=== PATIENT | female | born 1965 | race Two or more races ===

== ENCOUNTER 2017-06-16 14:28 | Emergency (ER) | payer OTHER ==
[~2017-06-16] VITALS: Ht 154.9 cm; Wt 93.4 kg
[2017-06-16 14:34] VITALS: BP 159/51
[2017-06-16] MEDS ORDERED: KETOROLAC TROMETH 60MG/2ML VIAL IM ONE (15:15)
== END 2017-06-16 16:04 | disposition left against medical advice (07) ==
LOC: ER 14:28
DX: S01.531A Puncture wound without foreign body of lip, initial encounter (principal); S80.01XA Contusion of right knee, initial encounter; M17.11 Unilateral primary osteoarthritis, right knee; M19.90 Unspecified osteoarthritis, unspecified site; E11.9 Type 2 diabetes mellitus without complications; I10 Essential (primary) hypertension; G89.4 Chronic pain syndrome; E66.9 Obesity, unspecified; Z68.38 Body mass index [BMI] 38.0-38.9, adult; W18.39XA Other fall on same level, initial encounter; Y93.89 Activity, other specified; Y92.89 Other specified places as the place of occurrence of the external cause; Y99.8 Other external cause status
CPT/HCPCS: 73562; 73700; 96372; 99284; J1885

== ENCOUNTER 2017-06-17 12:17 | Emergency (ER) | payer OTHER ==
[~2017-06-17] VITALS: Ht 154.9 cm; Wt 91.6 kg
[2017-06-17 12:40] VITALS: BP 144/68
== END 2017-06-17 13:31 | disposition home or self-care (01) ==
LOC: ER 12:17
DX: M17.11 Unilateral primary osteoarthritis, right knee (principal); E11.9 Type 2 diabetes mellitus without complications; I10 Essential (primary) hypertension; Z76.0 Encounter for issue of repeat prescription; Z88.6 Allergy status to analgesic agent

== ENCOUNTER 2023-09-08 10:55 | Inpatient (IN) | payer OTHER ==
[~2023-09-08] VITALS: Ht 175.3 cm; Wt 207.0 kg
[2023-09-08] MEDS: ACETAMINOPHEN 325 MG TAB PO ONE (11:11)
[2023-09-08 12:13] LABS: Basophils # (auto) 0 10 ^3/uL (0-0.2); Basophils % (auto) 0.5 % (0.0-2.0); Eosinophils # (auto) 0 10 ^3/uL (0-0.8); Eosinophils % (auto) 0.2 % (0.0-7.0); Hematocrit 32.2 % (36.0-46.0); Hemoglobin 10.6 g/dL (12.2-16.2); Lymphocytes # (auto) 0.5 10 ^3/uL (0.4-5.4); Mean Corpuscular Volume 81.9 fL (80.0-100.0); Monocytes # (auto) 0.6 10 ^3/uL (0-1.3); Monocytes % (auto) 6.4 % (0.0-12.0); Neutrophils # (auto) 8.8 10 ^3/uL (1.6-8.6); Neutrophils % (auto) 87.9 % (37.0-80.0); Red Blood Cells 3.93 10^6/uL (4.0-5.20); White Blood Cell 10.1 10^3/uL (4.4-10.8)
[2023-09-08 12:14] LABS: Alanine Aminotransferase 26 U/L (7-40); Albumin 3.2 g/dL (3.2-4.8); Alkaline Phosphatase 163 U/L (46-116); Anion Gap 8 (5-15); Aspartate Aminotransferase 51 U/L (13-40); BUN/Creatinine Ratio 10.8 (10.0-20.0); Blood Urea Nitrogen 10 mg/dL (9-23); Calcium 8.6 mg/dL (8.7-10.4); Carbon Dioxide 19 mmol/L (20-30); Chloride 103 mmol/L (98-107); Glucose 191 mg/dL (74-106); Lipase 20 U/L (12-53); Magnesium 1.3 mg/dL (1.6-2.6); Potassium 3.8 mmol/L (3.5-5.1); Sodium 130 mmol/L (136-145)
[2023-09-08 12:15] LABS: Bilirubin, Total 2.1 mg/dL (0.2-1.0); Total Protein 7.3 g/dL (5.7-8.2)
[2023-09-08 12:29] LABS: Lactic Acid w/Reflex 4.8 mmol/L (0.4-2.0)
[2023-09-08 12:32] LABS: Blood Alcohol < 3.0 mg/dL (<10)
[2023-09-08 15:00] VITALS: PULSE 102; RESP 18; O2SAT 97
[2023-09-08] MEDS ORDERED: NITROGLYCERIN 0.4 MG SL TAB SL PRN (15:15)
[2023-09-08] MEDS ORDERED: ACETAMINOPHEN 325 MG TAB PO PRN (15:15)
[2023-09-08] MEDS ORDERED: ONDANSETRON HCL 4 MG/2 ML VIAL IV PRN (15:15)
[2023-09-08] MEDS ORDERED: DEXTROSE (50%) 50ML SYRG IV PRN (15:15)
[2023-09-08] MEDS ORDERED: MORPHINE SULFATE INJ 2 MG/ml SYRG IV PRN (15:15)
[2023-09-08] MEDS: cefTRIAXone 2GM/50ML D5W 50 ML IV ONE (15:15)
[2023-09-08] MEDS: LACTULOSE 20Gm/30ML SOLN PO ONE (15:16)
[2023-09-08] MEDS: SODIUM CHLORIDE 0.9% 500 ML IV ONE ×3 (15:18)
[2023-09-08] MEDS: SODIUM CHLORIDE 0.9% 1,000 ML IV SCH (15:24)
[2023-09-08] MEDS: MAGNESIUM SULFATE 1GM/100ML 100 ML IV ONE (15:47)
[2023-09-08 17:27] LABS: Lactic Acid w/Reflex 2.4 mmol/L (0.4-2.0)
[2023-09-08] MEDS: ACCU-CHEK COMFORT CURVE STRIP VI SCH (17:37)
[2023-09-08] MEDS: InsuLIN REG 1unit/0.01ml Soln (100units/ml) SC SCH (17:37)
[2023-09-08] MEDS: LACTULOSE 20Gm/30ML SOLN PO SCH (17:51)
[2023-09-08 19:30] VITALS: PULSE 98; RESP 16; O2SAT 98
[2023-09-08 20:21] LABS: COVID19 ANTIGEN SOFIA FIA NEGATIVE (NEGATIVE)
[2023-09-08 20:22] LABS: Rapid Influenza A Negative (Negative); Rapid Influenza B Negative (Negative)
[2023-09-08] MEDS ORDERED: diphenhdrAMINE HCL 50 MG/1 ML VL IV PRN (21:00)
[2023-09-08] MEDS ORDERED: PIPERACILLIN-TAZOB 3.375GM 100 ML IV SCH (21:00)
[2023-09-08] MEDS: CEFEPIME 1GM/ 50ML 50 ML IV SCH (22:45)
[2023-09-08 23:57] VITALS: BP 117/52; PULSE 99; RESP 18; TEMP 99.1; O2SAT 96
[2023-09-09] VITALS (9 sets, daily range): BP systolic 117–166; BP diastolic 51–80; PULSE 18–107; RESP 18–100; TEMP 97.6–99.1; O2SAT 92–100
[2023-09-09] MEDS: ACETAMINOPHEN 325 MG TAB PO PRN (00:23)
[2023-09-09 00:59] LABS: Lactic Acid w/Reflex 2.6 mmol/L (0.4-2.0)
[2023-09-09] MEDS ORDERED: SEMA4INJ SC (02:17)
[2023-09-09] MEDS ORDERED: ATEN100T PO (02:17)
[2023-09-09] MEDS ORDERED: RIFA550T PO (02:17)
[2023-09-09] MEDS ORDERED: FLUO40CA PO (02:17)
[2023-09-09] MEDS ORDERED: OXY5T PO (02:17)
[2023-09-09] MEDS ORDERED: FAMO-12 PO (02:17)
[2023-09-09 06:02] LABS: Basophils # (auto) 0 10 ^3/uL (0-0.2); Eosinophils # (auto) 0 10 ^3/uL (0-0.8); Hemoglobin 9.5 g/dL (12.2-16.2); Lymphocytes # (auto) 0.3 10 ^3/uL (0.4-5.4); Monocytes # (auto) 0.4 10 ^3/uL (0-1.3); Neutrophils # (auto) 2.3 10 ^3/uL (1.6-8.6); White Blood Cell 3.1 10^3/uL (4.4-10.8)
[2023-09-09 06:06] LABS: Basophils % (auto) 0.9 % (0.0-2.0); Eosinophils % (auto) 1.6 % (0.0-7.0); Hematocrit 29.2 % (36.0-46.0); Lymphocytes % (auto) 9.9 % (10.0-50.0); Mean Corpuscular Hemoglobin 26.6 pg (28.0-32.0); Mean Corpuscular Hgb Conc. 32.6 g/dL (32.0-36.0); Mean Corpuscular Volume 81.4 fL (80.0-100.0); Neutrophils % (auto) 75.6 % (37.0-80.0); Red Blood Cells 3.58 10^6/uL (4.0-5.20)
[2023-09-09 06:24] LABS: Alanine Aminotransferase 29 U/L (7-40); Albumin 2.9 g/dL (3.2-4.8); Alkaline Phosphatase 116 U/L (46-116); Anion Gap 7 (5-15); Aspartate Aminotransferase 78 U/L (13-40); Bilirubin, Total 2.1 mg/dL (0.2-1.0); Blood Urea Nitrogen 9 mg/dL (9-23); Calcium 8.6 mg/dL (8.7-10.4); Carbon Dioxide 22 mmol/L (20-30); Chloride 107 mmol/L (98-107); Glucose 177 mg/dL (74-106); Magnesium 1.7 mg/dL (1.6-2.6); Potassium 3.5 mmol/L (3.5-5.1); Total Protein 6.7 g/dL (5.7-8.2)
[2023-09-09 06:26] LABS: Sodium 136 mmol/L (136-145)
[2023-09-09] MEDS ORDERED: OMEP1CAP70 PO (14:00)
[2023-09-09] MEDS ORDERED: METF-372 PO (14:00)
[2023-09-09] MEDS ORDERED: CYCL-839 PO (14:00)
[2023-09-09] MEDS ORDERED: SIMV10TA20 PO (14:00)
[2023-09-10 01:00] VITALS: BP 140/76; PULSE 79; RESP 18; TEMP 98.1; O2SAT 94
[2023-09-10 05:00] VITALS: BP 142/74; PULSE 85; RESP 18; TEMP 98.4; O2SAT 95
[2023-09-10] MEDS: MORPHINE SULFATE INJ 2 MG/ml SYRG IV PRN (05:43)
[2023-09-10 07:03] LABS: Basophils # (auto) 0 10 ^3/uL (0-0.2); Eosinophils # (auto) 0.2 10 ^3/uL (0-0.8); Hemoglobin 10.6 g/dL (12.2-16.2); Monocytes # (auto) 0.4 10 ^3/uL (0-1.3); Neutrophils # (auto) 2.4 10 ^3/uL (1.6-8.6); Nucleated Red Blood Cells % 0.1 %; White Blood Cell 3.7 10^3/uL (4.4-10.8)
[2023-09-10 07:07] LABS: Eosinophils % (auto) 6.4 % (0.0-7.0); Hematocrit 32.6 % (36.0-46.0); Lymphocytes # (auto) 0.6 10 ^3/uL (0.4-5.4); Lymphocytes % (auto) 17.2 % (10.0-50.0); Mean Corpuscular Hemoglobin 26.9 pg (28.0-32.0); Mean Corpuscular Hgb Conc. 32.7 g/dL (32.0-36.0); Mean Corpuscular Volume 82.3 fL (80.0-100.0); Monocytes % (auto) 10.1 % (0.0-12.0); Neutrophils % (auto) 65.3 % (37.0-80.0); Red Blood Cells 3.96 10^6/uL (4.0-5.20)
[2023-09-10 07:18] LABS: Red Cell Distribution Width 20.1 % (11.8-14.3)
[2023-09-10 07:33] LABS: Alanine Aminotransferase 32 U/L (7-40); Alkaline Phosphatase 121 U/L (46-116); Anion Gap 11 (5-15); BUN/Creatinine Ratio 12.2 (10.0-20.0); Blood Urea Nitrogen 9 mg/dL (9-23); Calcium 8.6 mg/dL (8.5-10.1); Carbon Dioxide 21 mmol/L (20-30); Chloride 109 mmol/L (98-107); Glucose 151 mg/dL (74-106); Potassium 3.3 mmol/L (3.5-5.1); Sodium 141 mmol/L (136-145); Triglycerides 84 mg/dL (< 150)
[2023-09-10 07:34] LABS: Albumin 3.2 g/dL (3.2-4.8); Aspartate Aminotransferase 73 U/L (13-40); LDL Cholesterol 32 mg/dL (< 100)
[2023-09-10 07:35] LABS: Bilirubin, Total 1.7 mg/dL (0.2-1.0); Cholesterol 72 mg/dL (< 200); HDL Cholesterol 26 mg/dL (40-59); Total Protein 6.9 g/dL (5.7-8.2)
[2023-09-10 07:54] LABS: Lipase 19 U/L (12-53)
[2023-09-10 08:30] VITALS: BP 124/60; PULSE 93; RESP 19; TEMP 98.3
[2023-09-10] MEDS: POTASSIUM CHL 20MEQ/100ML 100 ML IV SCH (13:46)
[2023-09-10 15:02] VITALS: BP 129/62; PULSE 94; RESP 18; TEMP 98.4; O2SAT 97
[2023-09-10 20:00] VITALS: BP 132/72; PULSE 100; PULSE 87; RESP 16
[2023-09-10 21:00] VITALS: BP 132/72; PULSE 87; RESP 16; TEMP 98; O2SAT 97
[2023-09-11] VITALS (9 sets, daily range): BP systolic 114–167; BP diastolic 54–76; PULSE 70–97; RESP 17–20; TEMP 97.8–98.5; O2SAT 93–98
[2023-09-11] MEDS ORDERED: POTASSIUM CHL 20MEQ/100ML 100 ML IV SCH (03:30)
[2023-09-11] MEDS: POTASSIUM CHL 20MEQ/100ML 100 ML IV ONE (03:57)
[2023-09-11 07:46] LABS: Amylase 23 U/L (30-118)
[2023-09-11 07:47] LABS: Lipase 20 U/L (12-53)
[2023-09-12 01:00] VITALS: BP 121/57; PULSE 90; RESP 19; TEMP 97.9; O2SAT 94
[2023-09-12 05:00] VITALS: BP 137/56; PULSE 93; RESP 20; TEMP 97.6; O2SAT 97
[2023-09-12 07:27] LABS: Basophils # (auto) 0 10 ^3/uL (0-0.2); Eosinophils # (auto) 0.2 10 ^3/uL (0-0.8); Hematocrit 29.5 % (36.0-46.0); Monocytes # (auto) 0.2 10 ^3/uL (0-1.3); Red Blood Cells 3.63 10^6/uL (4.0-5.20)
[2023-09-12 07:34] LABS: Basophils % (auto) 0.8 % (0.0-2.0); Eosinophils % (auto) 6.4 % (0.0-7.0); Hemoglobin 9.8 g/dL (12.2-16.2); Lymphocytes # (auto) 0.6 10 ^3/uL (0.4-5.4); Lymphocytes % (auto) 18.4 % (10.0-50.0); Mean Corpuscular Hemoglobin 26.9 pg (28.0-32.0); Mean Corpuscular Hgb Conc. 33.1 g/dL (32.0-36.0); Mean Corpuscular Volume 81.4 fL (80.0-100.0); Monocytes % (auto) 7.8 % (0.0-12.0); Neutrophils % (auto) 66.6 % (37.0-80.0); Nucleated Red Blood Cells % 0.1 %; Red Cell Distribution Width 19.7 % (11.8-14.3)
[2023-09-12 07:45] LABS: Alanine Aminotransferase 32 U/L (7-40); Albumin 2.9 g/dL (3.2-4.8); Alkaline Phosphatase 122 U/L (46-116); Anion Gap 8 (5-15); Aspartate Aminotransferase 81 U/L (13-40); Calcium 8.2 mg/dL (8.5-10.1); Carbon Dioxide 22 mmol/L (20-30); Chloride 108 mmol/L (98-107); Glucose 129 mg/dL (74-106); Potassium 3.8 mmol/L (3.5-5.1); Sodium 138 mmol/L (136-145)
[2023-09-12 07:46] LABS: BUN/Creatinine Ratio 8.6 (10.0-20.0); Blood Urea Nitrogen < 5 mg/dL (9-23)
[2023-09-12 07:47] LABS: Bilirubin, Total 1.6 mg/dL (0.2-1.0); Total Protein 6.8 g/dL (5.7-8.2)
[2023-09-12 08:00] VITALS: PULSE 89
[2023-09-12 08:50] VITALS: BP 133/67; PULSE 86; RESP 17; TEMP 97.9; O2SAT 97
[2023-09-12] MEDS ORDERED: RIFA550T PO (12:39)
[2023-09-12] MEDS ORDERED: LACT10SO3 PO (12:39)
[2023-09-12 12:45] VITALS: BP 130/56; PULSE 91; RESP 17; TEMP 97.8; O2SAT 97
[2023-09-12 13:41] VITALS: BP 130/56; PULSE 91; RESP 17; TEMP 97.8; O2SAT 97
== END 2023-09-12 14:56 | disposition home or self-care (01) | DRG 441 ==
LOC: ER 10:55 → TELE 15:07 → TELE-WESTW 23:25
PROVIDERS: ADMIT Hospitalist; ATTEND Hospitalist
DX: K76.82 Hepatic encephalopathy (principal); G93.41 Metabolic encephalopathy; K81.0 Acute cholecystitis; E87.20 Acidosis, unspecified; E87.1 Hypo-osmolality and hyponatremia; Z20.822 Contact with and (suspected) exposure to COVID-19; K74.60 Unspecified cirrhosis of liver; I10 Essential (primary) hypertension; E11.65 Type 2 diabetes mellitus with hyperglycemia; E83.42 Hypomagnesemia; M06.9 Rheumatoid arthritis, unspecified; Z96.653 Presence of artificial knee joint, bilateral; Z96.643 Presence of artificial hip joint, bilateral; G89.29 Other chronic pain; E80.6 Other disorders of bilirubin metabolism; R79.89 Other specified abnormal findings of blood chemistry; Z88.1 Allergy status to other antibiotic agents
CPT/HCPCS: 36415; 71045; 74176; 74181; 76705; 80053; 80061; 80320; 82140; 82150; 82962; 83605; 83690; 83735; 84484; 85025; 87040; 87426; 87804; 93005; G0378; J1815; J3480

== ENCOUNTER 2023-09-16 18:11 | Inpatient (IN) | payer OTHER ==
[~2023-09-16] VITALS: Ht 154.9 cm; Wt 94.3 kg
[~2023-09-16 18:11] MED LIST: ATEN100T PO; FLUO40CA PO; LACT10SO3 PO; METF-372 PO; OMEP1CAP70 PO; OXY5T PO; RIFA550T PO; SEMA4INJ SC; SIMV10TA20 PO
[2023-09-16 19:48] LABS: Eosinophils # (auto) 0.3 10 ^3/uL (0-0.8); Eosinophils % (auto) 3.5 % (0.0-7.0); Hematocrit 35.5 % (36.0-46.0); Hemoglobin 11.6 g/dL (12.2-16.2); Mean Corpuscular Hemoglobin 26.9 pg (28.0-32.0); Monocytes # (auto) 0.5 10 ^3/uL (0-1.3); Nucleated Red Blood Cells % 0.2 %
[2023-09-16 19:50] LABS: Basophils # (auto) 0 10 ^3/uL (0-0.2); Basophils % (auto) 0.4 % (0.0-2.0); Lymphocytes % (auto) 12.1 % (10.0-50.0); Mean Corpuscular Hgb Conc. 32.5 g/dL (32.0-36.0); Mean Corpuscular Volume 82.8 fL (80.0-100.0); Monocytes % (auto) 5.9 % (0.0-12.0); Neutrophils # (auto) 6.6 10 ^3/uL (1.6-8.6); Neutrophils % (auto) 78.1 % (37.0-80.0); Red Blood Cells 4.29 10^6/uL (4.0-5.20); Red Cell Distribution Width 19.9 % (11.8-14.3); White Blood Cell 8.4 10^3/uL (4.4-10.8)
[2023-09-16 20:04] LABS: Alanine Aminotransferase 33 U/L (7-40); Albumin 3.4 g/dL (3.2-4.8); Alkaline Phosphatase 138 U/L (46-116); Anion Gap 11 (5-15); Aspartate Aminotransferase 55 U/L (13-40); BUN/Creatinine Ratio 8.5 (10.0-20.0); Blood Urea Nitrogen 6 mg/dL (9-23); Calcium 8.8 mg/dL (8.7-10.4); Carbon Dioxide 22 mmol/L (20-30); Chloride 102 mmol/L (98-107); Glucose 135 mg/dL (74-106); Lipase 25 U/L (12-53); Potassium 3.6 mmol/L (3.5-5.1); Sodium 135 mmol/L (136-145); Total Protein 7.7 g/dL (5.7-8.2)
[2023-09-16 20:10] LABS: Bilirubin, Total 2.6 mg/dL (0.2-1.0)
[2023-09-16 21:01] LABS: Urine Bacteria FEW /hpf (None Seen); Urine Blood Negative /uL (Negative); Urine Budding Yeast OCCASIONAL /hpf (None Seen); Urine Clarity Turbid (Clear); Urine Color Yellow (Yellow); Urine Mucus FEW (None Seen); Urine Protein, UAD TRACE (Negative); Urine Specific Gravity 1.015 (1.001-1.035); Urine Urobilinogen 2 mg/dL (Negative); Urine WBC 59 /hpf (0 - 5)
[2023-09-16] MEDS: PANTOPRAZOLE 40 MG/10 ML VIAL INJ IV ONE (21:11)
[2023-09-16] MEDS: ONDANSETRON HCL 4 MG/2 ML VIAL IV ONE (21:11)
[2023-09-16] MEDS: MORPHINE SULFATE 4 MG/ML SYR/VIAL IV ONE (21:12)
[2023-09-17] VITALS (8 sets, daily range): BP systolic 102–118; BP diastolic 40–83; PULSE 71–101; RESP 18–20; TEMP 97.4–98.4; O2SAT 95–97
[2023-09-17] MEDS: PIPERACILLIN-TAZO 4.5GM 100 ML IV ONE (00:30)
[2023-09-17] MEDS ORDERED: ONDANSETRON HCL 4 MG/2 ML VIAL IV PRN (00:45)
[2023-09-17] MEDS ORDERED: DEXTROSE (50%) 50ML SYRG IV PRN (00:45)
[2023-09-17] MEDS ORDERED: NITROGLYCERIN 0.4 MG SL TAB SL PRN (00:45)
[2023-09-17] MEDS ORDERED: ACETAMINOPHEN 325 MG TAB PO PRN (00:45)
[2023-09-17] MEDS ORDERED: DOCUSATE SOD 100 MG CAP PO PRN (00:45)
[2023-09-17] MEDS ORDERED: hydrALAZINE HCL 20 MG/ML VL IV PRN (00:45)
[2023-09-17] MEDS: HYDROcodone-ACET 5/325MG TAB PO PRN (01:18)
[2023-09-17] MEDS: SODIUM CHLORIDE 0.9% 1,000 ML IV SCH (01:18)
[2023-09-17] MEDS: InsuLIN REG 1unit/0.01ml Soln (100units/ml) SC SCH (06:00)
[2023-09-17] MEDS: MORPHINE SULFATE INJ 2 MG/ml SYRG IV ONE (06:00)
[2023-09-17] MEDS: ACCU-CHEK COMFORT CURVE STRIP VI SCH (06:10)
[2023-09-17] MEDS: FAMOTIDINE (10MG/ML) 2ML VL IV SCH (09:06)
[2023-09-17] MEDS: levoFLOXacin 500MG 100 ML IV SCH (09:06)
[2023-09-17 09:50] LABS: Basophils # (auto) 0 10 ^3/uL (0-0.2); Eosinophils # (auto) 0.2 10 ^3/uL (0-0.8); Hemoglobin 10.3 g/dL (12.2-16.2); Lymphocytes # (auto) 0.6 10 ^3/uL (0.4-5.4); Monocytes # (auto) 0.4 10 ^3/uL (0-1.3); Red Cell Distribution Width 19.7 % (11.8-14.3)
[2023-09-17 09:52] LABS: Basophils % (auto) 0.7 % (0.0-2.0); Eosinophils % (auto) 4.1 % (0.0-7.0); Hematocrit 31.4 % (36.0-46.0); Lymphocytes % (auto) 13.3 % (10.0-50.0); Mean Corpuscular Hemoglobin 27.2 pg (28.0-32.0); Mean Corpuscular Hgb Conc. 32.9 g/dL (32.0-36.0); Mean Corpuscular Volume 82.5 fL (80.0-100.0); Monocytes % (auto) 8.8 % (0.0-12.0); Neutrophils # (auto) 3.3 10 ^3/uL (1.6-8.6); Neutrophils % (auto) 73.1 % (37.0-80.0); Red Blood Cells 3.81 10^6/uL (4.0-5.20); White Blood Cell 4.5 10^3/uL (4.4-10.8)
[2023-09-17 10:01] LABS: Chloride 106 mmol/L (98-107); Potassium 3.4 mmol/L (3.5-5.1); Sodium 137 mmol/L (136-145)
[2023-09-17 10:02] LABS: Anion Gap 6 (5-15); Calcium 8.5 mg/dL (8.5-10.1); Carbon Dioxide 25 mmol/L (20-30)
[2023-09-17 10:07] LABS: BUN/Creatinine Ratio 11.7 (10.0-20.0); Blood Urea Nitrogen 7 mg/dL (9-23); Glucose 130 mg/dL (74-106)
[2023-09-17 10:08] LABS: INR 1.32 (0.9-1.15); Partial Thromboplastin Time 33.8 SEC (24.5-34.5); Prothrombin Time 13.7 sec (9.3-11.8)
[2023-09-17] MEDS: MORPHINE SULFATE INJ 2 MG/ml SYRG IV PRN (13:53)
[2023-09-18] VITALS (7 sets, daily range): BP systolic 115–133; BP diastolic 47–80; PULSE 88–98; RESP 18–19; TEMP 37.2; O2SAT 92–98
[2023-09-18] MEDS: MORPHINE SULFATE INJ 2 MG/ml SYRG IV PRN (02:58)
[2023-09-18 07:07] LABS: Basophils # (auto) 0 10 ^3/uL (0-0.2); Basophils % (auto) 0.8 % (0.0-2.0); Eosinophils # (auto) 0.2 10 ^3/uL (0-0.8); Hemoglobin 10.5 g/dL (12.2-16.2); Lymphocytes # (auto) 0.6 10 ^3/uL (0.4-5.4); Neutrophils # (auto) 2.6 10 ^3/uL (1.6-8.6); Neutrophils % (auto) 70.2 % (37.0-80.0)
[2023-09-18 07:10] LABS: Eosinophils % (auto) 5.5 % (0.0-7.0); Hematocrit 32.2 % (36.0-46.0); Lymphocytes % (auto) 16.2 % (10.0-50.0); Mean Corpuscular Hgb Conc. 32.7 g/dL (32.0-36.0); Mean Corpuscular Volume 82.8 fL (80.0-100.0); Monocytes # (auto) 0.3 10 ^3/uL (0-1.3); Monocytes % (auto) 7.3 % (0.0-12.0); Nucleated Red Blood Cells % 0.3 %; Red Blood Cells 3.89 10^6/uL (4.0-5.20); Red Cell Distribution Width 19.9 % (11.8-14.3); White Blood Cell 3.8 10^3/uL (4.4-10.8)
[2023-09-18 07:29] LABS: Alanine Aminotransferase 26 U/L (7-40); Alkaline Phosphatase 98 U/L (46-116); Anion Gap 8 (5-15); Aspartate Aminotransferase 47 U/L (13-40); BUN/Creatinine Ratio 12.7 (10.0-20.0); Bilirubin, Total 3.1 mg/dL (0.2-1.0); Blood Urea Nitrogen 8 mg/dL (9-23); Calcium 8.7 mg/dL (8.7-10.4); Carbon Dioxide 25 mmol/L (20-30); Chloride 106 mmol/L (98-107); Glucose 96 mg/dL (74-106); Potassium 3.6 mmol/L (3.5-5.1); Sodium 139 mmol/L (136-145); Total Protein 6.9 g/dL (5.7-8.2)
[2023-09-18] MEDS ORDERED: LEVO500T91 PO (15:16)
== END 2023-09-18 19:25 | disposition home or self-care (01) | DRG 389 ==
LOC: ER 18:11 → TELE 09-17 00:59 → TELE-CENTR 09-17 05:06
PROVIDERS: ADMIT Internal Medicine; ATTEND Internal Medicine
PROC: 0D9670Z Drainage of Stomach with Drainage Device, Via Natural or Artificial Opening (ICD-10-PCS; principal; 2023-09-17)
DX: K56.600 Partial intestinal obstruction, unspecified as to cause (principal); N39.0 Urinary tract infection, site not specified; E66.01 Morbid (severe) obesity due to excess calories; E11.9 Type 2 diabetes mellitus without complications; I10 Essential (primary) hypertension; K74.60 Unspecified cirrhosis of liver; E78.5 Hyperlipidemia, unspecified; K56.7 Ileus, unspecified; M06.9 Rheumatoid arthritis, unspecified; Z88.1 Allergy status to other antibiotic agents; Z80.0 Family history of malignant neoplasm of digestive organs; Z82.49 Family history of ischemic heart disease and other diseases of the circulatory system; Z83.3 Family history of diabetes mellitus; Z68.39 Body mass index [BMI] 39.0-39.9, adult
CPT/HCPCS: 36415; 74018; 74176; 76705; 80048; 80053; 81001; 82962; 83690; 85025; 85610; 85730; 87081; 87086; C9113; G0378; J1815; J1956; J2405; J2543; J3490

== ENCOUNTER 2023-10-04 04:40 | Inpatient (IN) | payer OTHER ==
[~2023-10-04] VITALS: Ht 154.9 cm; Wt 93.0 kg
[~2023-10-04 04:40] MED LIST changes: +LEVO500T91 PO
[2023-10-04 05:32] VITALS: PULSE 82; RESP 12; O2SAT 98
[2023-10-04 05:50] LABS: Hematocrit 30.8 % (36.0-46.0); Hemoglobin 10.1 g/dL (12.2-16.2); Lymphocytes # (auto) 0.8 10 ^3/uL (0.4-5.4)
[2023-10-04 05:53] LABS: Alanine Aminotransferase 37 U/L (7-40); Albumin 2.8 g/dL (3.2-4.8); Alkaline Phosphatase 100 U/L (46-116); Anion Gap 5 (5-15); Aspartate Aminotransferase 63 U/L (13-40); BUN/Creatinine Ratio 13.1 (10.0-20.0); Blood Urea Nitrogen 13 mg/dL (9-23); Calcium 8.5 mg/dL (8.7-10.4); Carbon Dioxide 27 mmol/L (20-30); Chloride 102 mmol/L (98-107); Glucose 128 mg/dL (74-106); Potassium 4.5 mmol/L (3.5-5.1); Sodium 134 mmol/L (136-145)
[2023-10-04 05:54] LABS: Bilirubin, Total 3.2 mg/dL (0.2-1.0); Total Protein 6.7 g/dL (5.7-8.2)
[2023-10-04 05:58] LABS: Basophils # (auto) 0 10 ^3/uL (0-0.2); Basophils % (auto) 0.9 % (0.0-2.0); Eosinophils # (auto) 0.6 10 ^3/uL (0-0.8); Eosinophils % (auto) 11.6 % (0.0-7.0); Mean Corpuscular Hgb Conc. 32.8 g/dL (32.0-36.0); Mean Corpuscular Volume 85.6 fL (80.0-100.0); Monocytes # (auto) 0.8 10 ^3/uL (0-1.3); Monocytes % (auto) 13.9 % (0.0-12.0); Neutrophils # (auto) 3.2 10 ^3/uL (1.6-8.6); Neutrophils % (auto) 58.6 % (37.0-80.0); Nucleated Red Blood Cells % 0.2 %; Red Cell Distribution Width 19.8 % (11.8-14.3); White Blood Cell 5.4 10^3/uL (4.4-10.8)
[2023-10-04] MEDS: SODIUM CHLORIDE 0.9% 1,000 ML IV ONE (09:00)
[2023-10-04] MEDS: LACTULOSE 20Gm/30ML SOLN PO ONE (09:00)
[2023-10-04] MEDS ORDERED: DEXTROSE (50%) 50ML SYRG IV PRN (09:15)
[2023-10-04] MEDS ORDERED: DOCUSATE SOD 100 MG CAP PO PRN (09:15)
[2023-10-04] MEDS ORDERED: ONDANSETRON HCL 4 MG/2 ML VIAL IV PRN (09:15)
[2023-10-04 09:46] LABS: Urine Bacteria FEW /hpf (None Seen); Urine Blood Negative /uL (Negative); Urine Budding Yeast OCCASIONAL /hpf (None Seen); Urine Clarity Turbid (Clear); Urine Color Yellow (Yellow); Urine Hyaline Cast FEW /lpf (0 - 2); Urine Protein, UAD Negative (Negative); Urine Specific Gravity 1.013 (1.001-1.035); Urine Urobilinogen 3 mg/dL (Negative); Urine WBC 3 /hpf (0 - 5); Urine pH 5.5 (5.0-9.0)
[2023-10-04] MEDS: LACTULOSE 20Gm/30ML SOLN PO SCH (10:15)
[2023-10-04] MEDS ORDERED: ALBUTEROL SULF 2.5 MG/0.5ML(0.5%) NEB SOLN NEB PRN (10:45)
[2023-10-04] MEDS ORDERED: IPRATROPIUM BROM 0.5 MG/2.5ML INH SOL NEB PRN (10:45)
[2023-10-04] MEDS: PANTOPRAZOLE 40 MG/10 ML VIAL INJ IV ONE (10:47)
[2023-10-04] MEDS: levoFLOXacin 500MG 100 ML IV ONE (10:47)
[2023-10-04] MEDS: IPRATROPIUM BROM 0.5 MG/2.5ML INH SOL NEB ONE (11:27)
[2023-10-04] MEDS: ACCU-CHEK COMFORT CURVE STRIP VI SCH (11:30)
[2023-10-04] MEDS: InsuLIN REG 1unit/0.01ml Soln (100units/ml) SC SCH (11:30)
[2023-10-04 11:48] VITALS: PULSE 76; RESP 16; O2SAT 98
[2023-10-04 20:05] VITALS: PULSE 78; RESP 14; O2SAT 98
[2023-10-05 04:27] VITALS: O2SAT 97
[2023-10-05 06:29] VITALS: O2SAT 95
[2023-10-05 07:50] LABS: Alanine Aminotransferase 31 U/L (7-40); Albumin 2.8 g/dL (3.2-4.8); Alkaline Phosphatase 98 U/L (46-116); Anion Gap 5 (5-15); Aspartate Aminotransferase 57 U/L (13-40); BUN/Creatinine Ratio 14.7 (10.0-20.0); Bilirubin, Total 2.6 mg/dL (0.2-1.0); Blood Urea Nitrogen 10 mg/dL (9-23); Calcium 8.5 mg/dL (8.7-10.4); Carbon Dioxide 27 mmol/L (20-30); Chloride 106 mmol/L (98-107); Glucose 122 mg/dL (74-106); Potassium 3.4 mmol/L (3.5-5.1); Sodium 138 mmol/L (136-145); Total Protein 7.1 g/dL (5.7-8.2)
[2023-10-05 07:53] LABS: Basophils # (auto) 0 10 ^3/uL (0-0.2); Eosinophils # (auto) 0.4 10 ^3/uL (0-0.8); Hemoglobin 10.4 g/dL (12.2-16.2); Monocytes # (auto) 0.4 10 ^3/uL (0-1.3); Neutrophils # (auto) 2.1 10 ^3/uL (1.6-8.6); Nucleated Red Blood Cells % 0.2 %; White Blood Cell 3.5 10^3/uL (4.4-10.8)
[2023-10-05 07:55] LABS: Basophils % (auto) 0.6 % (0.0-2.0); Eosinophils % (auto) 10.8 % (0.0-7.0); Hematocrit 32.2 % (36.0-46.0); Lymphocytes # (auto) 0.5 10 ^3/uL (0.4-5.4); Lymphocytes % (auto) 14.7 % (10.0-50.0); Mean Corpuscular Hemoglobin 27.5 pg (28.0-32.0); Mean Corpuscular Hgb Conc. 32.2 g/dL (32.0-36.0); Mean Corpuscular Volume 85.2 fL (80.0-100.0); Monocytes % (auto) 12.4 % (0.0-12.0); Neutrophils % (auto) 61.5 % (37.0-80.0); Red Blood Cells 3.78 10^6/uL (4.0-5.20)
[2023-10-05 07:58] LABS: Red Cell Distribution Width 20.1 % (11.8-14.3)
[2023-10-05 09:23] VITALS: PULSE 98; RESP 18; O2SAT 98
[2023-10-05] MEDS: PANTOPRAZOLE 40 MG/10 ML VIAL INJ IV SCH (10:14)
[2023-10-05] MEDS: levoFLOXacin 500MG 100 ML IV SCH (10:15)
[2023-10-05 19:30] VITALS: PULSE 64; RESP 18; O2SAT 98
[2023-10-05 19:31] VITALS: O2SAT 96
[2023-10-05] MEDS: LACTULOSE 20Gm/30ML SOLN PO SCH (21:58)
[2023-10-05 23:28] VITALS: PULSE 96; RESP 17; O2SAT 94
[2023-10-06] VITALS (7 sets, daily range): BP systolic 106–118; BP diastolic 46–71; PULSE 83–97; RESP 17–18; TEMP 97.8–98.4; O2SAT 94–100
[2023-10-06 05:59] LABS: Alanine Aminotransferase 30 U/L (7-40); Alkaline Phosphatase 87 U/L (46-116)
[2023-10-06 06:00] LABS: Albumin 2.9 g/dL (3.2-4.8); Anion Gap 6 (5-15); Aspartate Aminotransferase 61 U/L (13-40); BUN/Creatinine Ratio 15.3 (10.0-20.0); Bilirubin, Total 2.3 mg/dL (0.2-1.0); Blood Urea Nitrogen 9 mg/dL (9-23); Calcium 8.4 mg/dL (8.5-10.1); Carbon Dioxide 26 mmol/L (20-30); Chloride 108 mmol/L (98-107); Glucose 103 mg/dL (74-106); Potassium 3.3 mmol/L (3.5-5.1); Sodium 140 mmol/L (136-145); Total Protein 6.6 g/dL (5.7-8.2)
[2023-10-06] MEDS: POTASSIUM EFFERVESENT TAB 25 MEQ PO ONE (12:48)
== END 2023-10-06 18:29 | disposition home health service (06) | DRG 441 ==
LOC: ER 04:40 → EDBD 04:40 → OVERFLOW 10:38 → TELE-WESTW 10-05 23:18
PROVIDERS: ADMIT Nurse Practitioner Family; ATTEND Nurse Practitioner Acute Care
DX: K76.82 Hepatic encephalopathy (principal); G93.41 Metabolic encephalopathy; N39.0 Urinary tract infection, site not specified; K74.60 Unspecified cirrhosis of liver; J40 Bronchitis, not specified as acute or chronic; D64.9 Anemia, unspecified; D69.6 Thrombocytopenia, unspecified; I10 Essential (primary) hypertension; E88.09 Other disorders of plasma-protein metabolism, not elsewhere classified; E66.9 Obesity, unspecified; E83.51 Hypocalcemia; E11.65 Type 2 diabetes mellitus with hyperglycemia; E80.6 Other disorders of bilirubin metabolism; Z88.1 Allergy status to other antibiotic agents; Z83.3 Family history of diabetes mellitus; Z80.0 Family history of malignant neoplasm of digestive organs; Z82.49 Family history of ischemic heart disease and other diseases of the circulatory system; Z68.38 Body mass index [BMI] 38.0-38.9, adult
CPT/HCPCS: 36415; 70450; 71045; 80053; 81001; 82140; 82962; 83880; 84484; 85025; 87081; 93005; 94640; 96360; 99291; C9113; G0378; J1815; J1956

== ENCOUNTER 2023-11-09 14:04 | Inpatient (IN) | payer OTHER ==
[~2023-11-09] VITALS: Ht 154.9 cm; Wt 93.0 kg
[2023-11-09] MEDS ORDERED: ACETAMINOPHEN IV 1000 MG/100ML (10MG/ML) IV PRN ×2 (14:30→15:00)
[2023-11-09 14:57] LABS: Basophils # (auto) 0 10 ^3/uL (0-0.2); Basophils % (auto) 0.4 % (0.0-2.0); Eosinophils # (auto) 0.1 10 ^3/uL (0-0.8); Eosinophils % (auto) 1.5 % (0.0-7.0); Hemoglobin 10.6 g/dL (12.2-16.2); Lymphocytes # (auto) 0.3 10 ^3/uL (0.4-5.4); Lymphocytes % (auto) 3.8 % (10.0-50.0); Mean Corpuscular Hemoglobin 28.5 pg (28.0-32.0); Mean Corpuscular Hgb Conc. 33.1 g/dL (32.0-36.0); Mean Corpuscular Volume 86.2 fL (80.0-100.0); Monocytes # (auto) 0.4 10 ^3/uL (0-1.3); Neutrophils # (auto) 7.3 10 ^3/uL (1.6-8.6); Neutrophils % (auto) 89.3 % (37.0-80.0); Nucleated Red Blood Cells % 0.1 %; Red Blood Cells 3.71 10^6/uL (4.0-5.20); Red Cell Distribution Width 17.4 % (11.8-14.3); White Blood Cell 8.2 10^3/uL (4.4-10.8)
[2023-11-09] MEDS: SODIUM CHLORIDE 0.9% 1,000 ML IVB ONE (15:00)
[2023-11-09] MEDS: ACETAMINOPHEN IV 1000 MG/100ML (10MG/ML) IV ONE (15:16)
[2023-11-09 15:21] VITALS: PULSE 113; RESP 14; O2SAT 95
[2023-11-09 15:30] LABS: Lactic Acid w/Reflex 2.3 mmol/L (0.4-2.0)
[2023-11-09 15:36] LABS: INR 1.35 (0.9-1.15); Partial Thromboplastin Time 31.6 SEC (24.5-34.5)
[2023-11-09 16:20] LABS: Alanine Aminotransferase 33 U/L (7-40); Alkaline Phosphatase 166 U/L (46-116); Anion Gap 3 (5-15); Aspartate Aminotransferase 69 U/L (13-40); BUN/Creatinine Ratio 10.8 (10.0-20.0); Blood Alcohol < 3.0 mg/dL (<10); Blood Urea Nitrogen 8 mg/dL (9-23); Calcium 8.5 mg/dL (8.5-10.1); Carbon Dioxide 26 mmol/L (20-30); Chloride 103 mmol/L (98-107); Glucose 169 mg/dL (74-106); Magnesium 1.4 mg/dL (1.6-2.6); Potassium 4.1 mmol/L (3.5-5.1); Sodium 132 mmol/L (136-145)
[2023-11-09 16:21] LABS: Bilirubin, Total 2.3 mg/dL (0.2-1.0); Total Protein 7.1 g/dL (5.7-8.2)
[2023-11-09] MEDS: SODIUM CHLORIDE 0.9% 1,000 ML IV ONE (17:26)
[2023-11-09] MEDS: IOHEXOL 300 MG/ML 100ML BOTTLE IJ ONE (17:52)
[2023-11-09] MEDS: HYDROcodone-ACET 10/325MG TAB PO ONE (20:39)
[2023-11-09 20:52] VITALS: PULSE 97; RESP 15; O2SAT 97
[2023-11-09 21:11] LABS: Urine Bacteria MANY /hpf (None Seen); Urine Blood Negative /uL (Negative); Urine Clarity Clear (Clear); Urine Color Light-Yellow (Yellow); Urine Protein, UAD Negative (Negative); Urine Specific Gravity 1.035 (1.001-1.035); Urine Urobilinogen Normal (Negative); Urine WBC 1 /hpf (0 - 5); Urine pH 6.5 (5.0-9.0)
[2023-11-09 21:21] LABS: Amphetamine Screen, Urine Neg (NEGATIVE); Barbiturate Scree,Urine Neg (NEGATIVE)
[2023-11-09 21:22] LABS: Benzodiazephine Screen, Urine Neg (NEGATIVE); Cannabinoid Screen, Urine Neg (NEGATIVE); Cocaine Screen, Urine Neg (NEGATIVE); Opiate Scree,Urine Neg (NEGATIVE); Phencyclidine Screen, Urine Neg (NEGATIVE)
[2023-11-09] MEDS: ACETAMINOPHEN 325 MG TAB PO ONE (22:17)
[2023-11-10] MEDS: PIPERACILLIN-TAZO 4.5GM 100 ML IV ONE (01:51)
[2023-11-10] MEDS ORDERED: VANCOMYCIN PER PHARMACY 0 MG IV SCH (06:15)
[2023-11-10] MEDS: VANCOMYCIN 1GM/200ML 200 ML IV ONE (06:46)
[2023-11-10 07:40] VITALS: PULSE 95; RESP 13; O2SAT 98
[2023-11-10] MEDS ORDERED: IBUPROFEN 600 MG TAB PO PRN (08:15)
[2023-11-10] MEDS: rifAXIMin 550 MG TAB PO SCH (09:52)
[2023-11-10] MEDS: LACTULOSE 20Gm/30ML SOLN PO SCH (09:53)
[2023-11-10 12:57] VITALS: BP 127/59; PULSE 92; RESP 16; TEMP 98.2; O2SAT 97
[2023-11-10 13:00] VITALS: BP 127/56; PULSE 91; RESP 16; TEMP 98.2; O2SAT 98
[2023-11-10] MEDS: oxyCODONE HCL 5MG TAB PO PRN (13:49)
[2023-11-10 17:00] VITALS: BP 130/75; PULSE 92; RESP 16; TEMP 98.3; O2SAT 98
[2023-11-10 21:00] VITALS: BP 144/76; PULSE 88; RESP 20; TEMP 98.5; O2SAT 100
[2023-11-10] MEDS: ONDANSETRON HCL 4 MG/2 ML VIAL IV PRN (21:36)
[2023-11-11] VITALS (7 sets, daily range): BP systolic 122–154; BP diastolic 53–94; PULSE 77–103; RESP 16–20; TEMP 97.7–98.7; O2SAT 92–100
[2023-11-11] MEDS ORDERED: VANCOMYCIN 1GM/200ML 200 ML IV SCH
[2023-11-11] MEDS: VANCOMYCIN 1GM/200ML 200 ML IV SCH (01:30)
[2023-11-11 06:51] LABS: Alanine Aminotransferase 35 U/L (7-40); Alkaline Phosphatase 107 U/L (46-116)
[2023-11-11 06:52] LABS: Albumin 2.7 g/dL (3.2-4.8); Anion Gap 5 (5-15); BUN/Creatinine Ratio 11.7 (10.0-20.0); Bilirubin, Total 2.1 mg/dL (0.2-1.0); Blood Urea Nitrogen 7 mg/dL (9-23); Calcium 8.5 mg/dL (8.7-10.4); Carbon Dioxide 24 mmol/L (20-30); Chloride 107 mmol/L (98-107); Glucose 153 mg/dL (74-106); Sodium 136 mmol/L (136-145); Total Protein 6.6 g/dL (5.7-8.2)
[2023-11-11 07:10] LABS: Aspartate Aminotransferase 95 U/L (13-40)
[2023-11-11 07:14] LABS: Hemoglobin 9.9 g/dL (12.2-16.2); Red Cell Distribution Width 17.7 % (11.8-14.3); White Blood Cell 3.4 10^3/uL (4.4-10.8)
[2023-11-11 07:17] LABS: Hematocrit 29.9 % (36.0-46.0); Mean Corpuscular Hemoglobin 28.9 pg (28.0-32.0); Mean Corpuscular Hgb Conc. 33.3 g/dL (32.0-36.0); Mean Corpuscular Volume 86.9 fL (80.0-100.0); Red Blood Cells 3.44 10^6/uL (4.0-5.20)
[2023-11-11 07:26] LABS: Basophils % (manual) 0 (0.0-2.0); Blast Cells 0; Metamyelocytes % 0; Myelocytes % 0; Promyelocytes % 0; Reactive Lymphocytes 0
[2023-11-11 09:24] LABS: Band Neutrophils % (manual) 6; Eosinophils % (manual) 3 (0-7); Lymphocytes % (manual) 5 (10.0-50.0); Monocytes % (manual) 4 (0-12); Platelet Estimate Decreased
[2023-11-11] MEDS: POTASSIUM CHL 20 Meq TABLET PO ONE (10:35)
[2023-11-11] MEDS: cefTRIAXone 1GM/50ML D5W 50 ML IV SCH (16:12)
[2023-11-11] MEDS: ATENOLOL 25 MG TAB PO SCH (16:12)
[2023-11-12 01:00] VITALS: BP 139/70; PULSE 78; RESP 18; TEMP 98.2; O2SAT 99
[2023-11-12 05:00] VITALS: BP 139/61; PULSE 77; RESP 16; TEMP 98; O2SAT 96
[2023-11-12 07:19] LABS: Basophils # (auto) 0 10 ^3/uL (0-0.2); Basophils % (auto) 0.8 % (0.0-2.0); Eosinophils # (auto) 0.3 10 ^3/uL (0-0.8); Eosinophils % (auto) 9.3 % (0.0-7.0); Hematocrit 30.2 % (36.0-46.0); Hemoglobin 10.2 g/dL (12.2-16.2); Lymphocytes # (auto) 0.6 10 ^3/uL (0.4-5.4); Lymphocytes % (auto) 19.6 % (10.0-50.0); Mean Corpuscular Hemoglobin 29.1 pg (28.0-32.0); Mean Corpuscular Hgb Conc. 33.7 g/dL (32.0-36.0); Mean Corpuscular Volume 86.5 fL (80.0-100.0); Monocytes # (auto) 0.3 10 ^3/uL (0-1.3); Monocytes % (auto) 8.2 % (0.0-12.0); Neutrophils % (auto) 62.1 % (37.0-80.0); Nucleated Red Blood Cells % 0.2 %; Red Blood Cells 3.49 10^6/uL (4.0-5.20); Red Cell Distribution Width 17.9 % (11.8-14.3); White Blood Cell 3.3 10^3/uL (4.4-10.8)
[2023-11-12 07:48] LABS: Alanine Aminotransferase 36 U/L (7-40); Alkaline Phosphatase 109 U/L (46-116); Anion Gap 7 (5-15); BUN/Creatinine Ratio 15.3 (10.0-20.0); Blood Urea Nitrogen 9 mg/dL (9-23); Calcium 8.2 mg/dL (8.5-10.1); Carbon Dioxide 23 mmol/L (20-30); Chloride 108 mmol/L (98-107); Glucose 91 mg/dL (74-106); Potassium 3.8 mmol/L (3.5-5.1); Sodium 138 mmol/L (136-145)
[2023-11-12 07:49] LABS: Albumin 2.8 g/dL (3.2-4.8); Aspartate Aminotransferase 78 U/L (13-40); Bilirubin, Total 1.5 mg/dL (0.2-1.0); Total Protein 6.5 g/dL (5.7-8.2)
[2023-11-12 09:00] VITALS: BP 127/70; PULSE 70; RESP 18; TEMP 97.8; O2SAT 96
[2023-11-12] MEDS: LACTULOSE 20Gm/30ML SOLN PO SCH (10:51)
[2023-11-12] MEDS: MAGNESIUM SULFATE 1GM/100ML 100 ML IV SCH (10:51)
[2023-11-12 13:00] VITALS: BP 117/55; PULSE 75; RESP 18; TEMP 97.7; O2SAT 95
[2023-11-12 16:48] VITALS: BP 138/78; PULSE 76; RESP 20; TEMP 97.8; O2SAT 98
[2023-11-12 21:00] VITALS: BP 145/63; PULSE 73; RESP 17; TEMP 97.9; O2SAT 97
[2023-11-13 01:00] VITALS: BP 134/76; PULSE 74; RESP 17; TEMP 97.9; O2SAT 98
[2023-11-13 05:00] VITALS: BP 130/59; PULSE 71; RESP 17; TEMP 97.9; O2SAT 94
[2023-11-13 05:59] LABS: Basophils # (auto) 0 10 ^3/uL (0-0.2); Basophils % (auto) 0.9 % (0.0-2.0); Eosinophils # (auto) 0.3 10 ^3/uL (0-0.8); Hemoglobin 10.3 g/dL (12.2-16.2); Monocytes # (auto) 0.3 10 ^3/uL (0-1.3); Neutrophils # (auto) 2.3 10 ^3/uL (1.6-8.6); Nucleated Red Blood Cells % 0.2 %; White Blood Cell 3.7 10^3/uL (4.4-10.8)
[2023-11-13 06:01] LABS: Eosinophils % (auto) 8.2 % (0.0-7.0); Hematocrit 30.9 % (36.0-46.0); Lymphocytes # (auto) 0.7 10 ^3/uL (0.4-5.4); Mean Corpuscular Hemoglobin 29.2 pg (28.0-32.0); Mean Corpuscular Hgb Conc. 33.2 g/dL (32.0-36.0); Mean Corpuscular Volume 87.9 fL (80.0-100.0); Monocytes % (auto) 7.8 % (0.0-12.0); Neutrophils % (auto) 63.1 % (37.0-80.0); Red Blood Cells 3.52 10^6/uL (4.0-5.20); Red Cell Distribution Width 17.7 % (11.8-14.3)
[2023-11-13 06:35] LABS: Alanine Aminotransferase 30 U/L (7-40); Alkaline Phosphatase 123 U/L (46-116); Anion Gap 6 (5-15); Calcium 8.4 mg/dL (8.5-10.1); Carbon Dioxide 24 mmol/L (20-30); Chloride 106 mmol/L (98-107); Glucose 104 mg/dL (74-106); Potassium 3.9 mmol/L (3.5-5.1); Sodium 136 mmol/L (136-145)
[2023-11-13 06:36] LABS: BUN/Creatinine Ratio 8.3 (10.0-20.0); Blood Urea Nitrogen 6 mg/dL (9-23); Magnesium 1.7 mg/dL (1.6-2.6)
[2023-11-13 06:37] LABS: Aspartate Aminotransferase 66 U/L (13-40)
[2023-11-13 06:38] LABS: Bilirubin, Total 1.5 mg/dL (0.2-1.0); Total Protein 6.7 g/dL (5.7-8.2)
[2023-11-13 06:41] LABS: Albumin 2.8 g/dL (3.2-4.8)
[2023-11-13 08:33] VITALS: BP 129/65; PULSE 71; RESP 19; TEMP 98.4; O2SAT 97
[2023-11-13 13:00] VITALS: BP 136/60; PULSE 71; RESP 19; TEMP 98; O2SAT 96
[2023-11-13] MEDS ORDERED: RIFA550T PO (15:04)
[2023-11-13] MEDS ORDERED: LACT10SO3 PO (15:04)
[2023-11-13] MEDS ORDERED: LEVO750T40 PO (15:04)
[2023-11-13 15:08] VITALS: BP 129/65; PULSE 71
[2023-11-14 09:42] LABS: Hepatitis B Surface Antigen Negative (Negative)
[2023-11-14 10:03] LABS: Hepatitis A Ab IgM Negative; Hepatitis C Antibody Negative (Negative)
[2023-11-14 11:09] LABS: Hepatitis B Core IgM Negative
== END 2023-11-13 16:00 | disposition home or self-care (01) | DRG 432 ==
LOC: ER 14:10 → OVERFLOW 11-10 06:11 → WEST WING 11-10 12:16
PROVIDERS: ADMIT Internal Medicine Pulmonary Disease; ATTEND Internal Medicine Pulmonary Disease
DX: K74.60 Unspecified cirrhosis of liver (principal); G93.41 Metabolic encephalopathy; I81 Portal vein thrombosis; R65.11 Systemic inflammatory response syndrome (SIRS) of non-infectious origin with acute organ dysfunction; E44.0 Moderate protein-calorie malnutrition; K76.6 Portal hypertension; R18.8 Other ascites; R78.81 Bacteremia; E11.65 Type 2 diabetes mellitus with hyperglycemia; N18.9 Chronic kidney disease, unspecified; Z96.659 Presence of unspecified artificial knee joint; I12.9 Hypertensive chronic kidney disease with stage 1 through stage 4 chronic kidney disease, or unspecified chronic kidney disease; E11.22 Type 2 diabetes mellitus with diabetic chronic kidney disease; D69.6 Thrombocytopenia, unspecified; D64.9 Anemia, unspecified; E83.42 Hypomagnesemia; E80.6 Other disorders of bilirubin metabolism; Z88.1 Allergy status to other antibiotic agents; Z68.38 Body mass index [BMI] 38.0-38.9, adult; K57.30 Diverticulosis of large intestine without perforation or abscess without bleeding
CPT/HCPCS: 36415; 71046; 74177; 76705; 80053; 80074; 80307; 80320; 81001; 82140; 82962; 83036; 83605; 83690; 83735; 84132; 84443; 84484; 85007; 85025; 85027; 85610; 85730; 87040; 87077; 87186; 93005; 96361; 96365; 96367; 96375; G0378; J0131; J2405; J2543

== ENCOUNTER 2024-09-15 23:36 | Inpatient (IN) | payer OTHER, MEDICAID ==
[~2024-09-15] VITALS: Ht 160 cm; Wt 95.8 kg
[~2024-09-15 23:36] MED LIST changes: +PANT40T PO
[2024-09-16 00:30] VITALS: PULSE 110; RESP 20; O2SAT 96
[2024-09-16 00:34] LABS: Basophils # (auto) 0.1 10 ^3/uL (0-0.2); Eosinophils # (auto) 0.1 10 ^3/uL (0-0.8); Hematocrit 34.1 % (36.0-46.0); Hemoglobin 11.7 g/dL (12.2-16.2); Lymphocytes # (auto) 0.6 10 ^3/uL (0.4-5.4); Monocytes # (auto) 0.3 10 ^3/uL (0-1.3); Monocytes % (auto) 6.4 % (0.0-12.0)
[2024-09-16 00:36] LABS: Basophils % (auto) 1.1 % (0.0-2.0); Eosinophils % (auto) 2.3 % (0.0-7.0); Lymphocytes % (auto) 12.9 % (10.0-50.0); Mean Corpuscular Hemoglobin 32.5 pg (28.0-32.0); Mean Corpuscular Hgb Conc. 34.3 g/dL (32.0-36.0); Mean Corpuscular Volume 94.8 fL (80.0-100.0); Neutrophils # (auto) 3.9 10 ^3/uL (1.6-8.6); Neutrophils % (auto) 77.3 % (37.0-80.0); Nucleated Red Blood Cells % 0.2 %; Platelet Count (auto) 63 10^3/uL (140-450); Red Cell Distribution Width 15.7 % (11.8-14.3)
[2024-09-16 00:52] LABS: Alanine Aminotransferase 27 U/L (7-40); Anion Gap 8 (5-15); BUN/Creatinine Ratio 13.2 (10.0-20.0); Carbon Dioxide 27 mmol/L (20-31); Chloride 103 mmol/L (98-107); Lipase 23 U/L (12-53); Potassium 3.8 mmol/L (3.5-5.1); Sodium 138 mmol/L (136-145); Total Protein 7.6 g/dL (5.7-8.2)
--- NOTE | 2024-09-16 00:52 | DVH ---
CHEST RADIOGRAPH Indication: Shortness a breath Technique: Single frontal view of the chest was obtained Comparison: XY CHEST PORTABLE on DOS: 03/30/23 Findings/ IMPRESSION: Low lung volumes with mild bronchovascular crowding otherwise no active cardiopulmonary disease.
[2024-09-16 00:54] LABS: Albumin 2.6 g/dL (3.2-4.8); Alkaline Phosphatase 135 U/L (46-116); Aspartate Aminotransferase 76 U/L (13-40); Bilirubin, Total 4.1 mg/dL (0.2-1.0); Blood Urea Nitrogen 9 mg/dL (9-23); Calcium 8.2 mg/dL (8.7-10.4); Glucose 140 mg/dL (74-106); Lactic Acid w/Reflex 2.2 mmol/L (0.4-2.0)
--- NOTE | 2024-09-16 00:55 | DVH ---
EXAM: CT HEAD WITHOUT CONTRAST INDICATION: Altered mental status TECHNIQUE: CT of the head without intravenous contrast. Radiation Dose : 1. Head: CT Dose: CTDI volume is 121.76 mGy. Dose-length product is 2297.89 mGy*cm The dose indicators for CT are the volume Computed Tomography (CT) Dose Index (CTDIvol) and the Dose Length Product (DLP), and are measured in units of mGy and mGy-cm, respectively. These indicators are not patient dose, but values generated from the CT scanner acquisition factors. The report includes radiation exposure data for exposures received during this examination. COMPARISON: CT HEAD WITHOUT CONTRAST on DOS: 08/23/24, CT HEAD WITHOUT CONTRAST on DOS: 03/30/23 FINDINGS: There is no evidence of acute intracranial hemorrhage, extra-axial collection, mass effect, midline s hift, herniation or hydrocephalus. Focally diminished parenchymal attenuation within the left externa l capsule redemonstrated, likely related to sequelae of chronic infarct. The ventricles, sulci and cisterns are age appropriate. The adrian-white differentiation is intact. Patchy periventricular and subcortical white matter hypoattenuation is nonspecific but may be related to small vessel ischemic disease. The visualized paranasal sinuses and mastoid air cells are clear. The surrounding soft tissues and osseous structures are unremarkable. IMPRESSION: 1. No acute intracranial abnormality. 2. 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 Radiation optimization: All CT scans at this facility use at least one of these dose optimization harpreet hniques: automated exposure control mA and/or kV adjustment per patient size (includes targeted exam s where dose is matched to clinical indication) or iterative reconstruction.
[2024-09-16 00:57] LABS: Platelet Estimate Decreased
[2024-09-16] MEDS: SODIUM CHLORIDE 0.9% 1,000 ML IV ONE ×2 (01:13→04:30)
[2024-09-16] MEDS: levETIRAcetam 1000 mg/100ml 100 ML IV ONE (01:13)
--- NOTE | 2024-09-16 01:57 | ED.PDOC ---
HPI (NEURO) HPI Comments Patient is a 59-year-old female who was brought in by EMS today due to altered level of consciousness. Patient's stated that the patient was complaining of abdominal pain earlier this evening. states it she was in the other room for a while and when he went to find her, she was laying down on the floor unresponsive. Patient called EMS and patient was brought to our facility. Patient has a history of kidney concerns, or liver issues, diabetes myelitis, hypertension and seizures. Vital signs were stable on arrival. Patient was obtunded and therefore, unable to share any additional information. Chief Complaint: ALOC Time Seen by MD: 23:39 Primary Care Provider: SKYLAR Alex Notes: Nurses Notes, Stitcher Standard Machine Notes Information Source: Patient, Emergency Med Personnel Mode of Arrival: EMS Severity: Severe Dizziness/Weakness Severity: Unable to do activities Headache Severity: None Timing: Hours Duration: Since onset Prehospital treatment: 12 Lead EKG Onset: With light exertion Circumstances: Spontaneous Symptoms: Other (ALOC) Before: Normal History of: DM, Seizure Disorder Past Medical History PAST MEDICAL HISTORY: DM, HTN, Seizures Past Medical History (Other): Renal disease, liver disease Surgical History: Denies all surgeries 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: Pt Confused Family History Family History: Pt Confused Social History Smoker: Pt Confused Alcohol: Pt Confused Drugs: Pt Confused Lives In: Home Constitutional: denies: chills, diaphoresis, fatigue, fever, malaise, sweats, weakness, others EENTM: denies: blurred vision, double vision, ear bleeding, ear discharge, ear drainage, ear pain, ear ringing, eye pain, eye redness, hearing loss, mouth pain, mouth swelling, nasal discharge, nose bleeding, nose congestion, nose pain, photophobia, tearing, throat pain, throat swelling, voice changes, others Respiratory: denies: cough, hemoptysis, orthopnea, SOB at rest, shortness of breath, SOB with excertion, stridor, wheezing, others Cardiovascular: denies: chest pain, dizzy spells, diaphoresis, Dyspnea on exertion, edema, irregular heart beat, left arm pain, lightheadedness, palpitations, PND, syncope, others Gastrointestinal: denies: abdomen distended, abdominal pain, blood streaked bowels, constipated, diarrhea, dysphagia, difficulty swallowing, hematemesis, melena, nausea, poor appetite, poor fluid intake, rectal bleeding, rectal pain, vomiting, others Genitourinary: denies: abnormal vagina bleeding, burning, dyspareunia, dysuria, flank pain, frequency, hematuria, incontinence, pain, , vagina discharge, urgency, others Neurological: denies: dizziness, fainting, headache, left sided numbness, left sided weakness, numbness, paresthesia, pre-existing deficit, right sided numbness, right sided weakness, seizure, speech problems, tingling, tremors, weakness, others Musculoskeletal: denies: back pain, gout, joint pain, joint swelling, muscle pain, muscle stiffness, neck pain, others Integumetry: denies: bruises, change in color, change in hair/nails, dryness, laceration, lesions, lumps, rash, wounds, others Allergic/Immunocompromised: denies: Difficulty Healing, Frequent Infections, Hives, Itching, others Hematologic/Lymphatic: denies: anemia, blood clots, easy bleeding, easy bruising, swollen glands, others Endocrine: denies: excessive hunger, excessive sweating, excessive thirst, excessive urination, flushing, intolerance to cold, intolerance to heat, unexp lained weight gain, unexplained weight loss, others Psychiatric: denies: anxiety, bipolar disorder, depression, hopeless, panic disorder, schizophrenia, sleepless, suicidal, others Unable to Obtain due to: Altered Mental Status Physical Exam General Appearance: Obese, Severe Distress (Patient was obtunded and unable to respond to questioning. Patient would respond to painful stimuli by opening her eyes.) HEENT: Normal ENT Inspection, Pharynx Normal, TMs Normal Neck: Full Range of Motion, Non-Tender, Normal, Normal Inspection Respiratory: Chest Non-Tender, Lungs Clear, No Accessory Muscle Use, No Respiratory Distress, Normal Breath Sounds Cardiovascular: No Edema, No JVD, No Murmur, No Gallop, Normal Peripheral Pulses, Regular Rate/Rhythm Breast Exam: Deferred Gastrointestinal: No Organomegaly, Non Tender, No Pulsatile Mass, Normal Bowel Sounds, Soft Genitalia: Deferred Pelvic: Deferred Rectal: Deferred Extremities: NOT DONE Neurologic: NOT DONE Cerebellar Function: NOT DONE Reflexes: NOT DONE Skin: Dry, Normal Color, Warm Lymphatic: No Adenopathy Was a procedure done? Was a procedure done?: No Differential Diagnosis (SZ) Seizure: Other (Seizure, sepsis, electrolyte abnormality, altered mental status, brain neoplasm, kidney disease, liver disease, and diabetes myelitis, hypertension) X-Ray, Labs, Meds, VS Vital Signs Date Time Temp Pulse Resp B/P (MAP) Pulse Ox O2 Delivery O2 Flow Rate FiO2 09/15/24 23:42 97 09/15/24 23:40 97.1 89 17 125/72 (89) 99 97.1 Lab Test 09/16/24 00:40 09/15/24 23:52 Range/Units Ammonia 119 *H 11-32 umol/L Troponin I High Sensitivity < 3 L < 3 L </=34 ng/L White Blood Count 5.0 4.4-10.8 10^3/uL Red Blood Count 3.60 L 4.0-5.20 10^6/uL Hemoglobin 11.7 L 12.2-16.2 g/dL Hematocrit 34.1 L 36.0-46.0 % Mean Corpuscular Volume 94.8 80.0-100.0 fL Mean Corpuscular Hemoglobin 32.5 H 28.0-32.0 pg Mean Corpuscular Hemoglobin Concent 34.3 32.0-36.0 g/dL Red Cell Distribution Width 15.7 H 11.8-14.3 % Platelet Count 63 L 140-450 10^3/uL Mean Platelet Volume 8.2 6.9-10.8 fL Neutrophils (%) (Auto) 77.3 37.0-80.0 % Lymphocytes (%) (Auto) 12.9 10.0-50.0 % Monocytes (%) (Auto) 6.4 0.0-12.0 % Eosinophils (%) (Auto) 2.3 0.0-7.0 % Basophils (%) (Auto) 1.1 0.0-2.0 % Neutrophils # (Auto) 3.9 1.6-8.6 10 ^3/uL Lymphocytes # (Auto) 0.6 0.4-5.4 10 ^3/uL Monocytes # (Auto) 0.3 0-1.3 10 ^3/uL Eosinophils # (Auto) 0.1 0-0.8 10 ^3/uL Basophils # (Auto) 0.1 0-0.2 10 ^3/uL Nucleated Red Blood Cells 0.2 % Platelet Estimate Decreased Sodium Level 138 136-145 mmol/L Potassium Level 3.8 3.5-5.1 mmol/L Chloride Level 103 98-107 mmol/L Carbon Dioxide Level 27 20-31 mmol/L Anion Gap 8 5-15 Blood Urea Nitrogen 9 9-23 mg/dL Creatinine 0.68 0.550-1.02 mg/dL Glomerular Filtration Rate Calc 100 >90 mL/min BUN/Creatinine Ratio 13.2 10.0-20.0 Serum Glucose 140 H 74-106 mg/dL Lactic Acid Level 2.2 *H 0.4-2.0 mmol/L Calcium Level 8.2 L 8.7-10.4 mg/dL Total Bilirubin 4.1 H 0.2-1.0 mg/dL Aspartate Amino Transferase (AST) 76 H 13-40 U/L Alanine Aminotransferase (ALT) 27 7-40 U/L Alkaline Phosphatase 135 H 46-116 U/L B-Type Natriuretic Peptide 20.49 0-100 pg/mL Total Protein 7.6 5.7-8.2 g/dL Albumin 2.6 L 3.2-4.8 g/dL Lipase 23 12-53 U/L Current Medications Medications (Trade) Dose Ordered Sig/Elizabeth Route Start Time Stop Time Status Last Admin Sodium Chloride 1,000 ml @ 200 mls/hr Q5H ONCE IV 09/16/24 01:00 09/16/24 05:59 09/16/24 01:13 Levetiracetam 100 ml @ 400 mls/hr ONCE ONCE IV 09/16/24 01:00 09/16/24 01:14 DC 09/16/24 01:13 X-Ray, Labs, Meds, VS Comment All studies performed the ED were evaluated by me personally. CT of the head without contrast was unremarkable for any acute intracranial abnormality. Stable lightly chronic left external capsule infarct and mild sequelae of chronic microvascular disease. Chest x-ray was unremarkable for any consolidation or fibrotic concerns. Mild bronchovascular crowding noted. EKG revealed sinus rhythm with a rate of 97. Low voltage in the precordial leads and anterior septal infarct in his old. NC interval 172 and QT interval of 386. Laboratories revealed a significant elevation in ammonia, elevated bilirubin, elevated lactic acid and anemia. Patient will be admitted for metabolic encephalopathy concerns as well as evaluation of her multiple comorbidities. Time of 1ST Reevaluation: 01:54 Reevaluation 1ST: Unchanged Consultation: PCP, Cardiology, Neurology Patient Education/Counseling: Diagnosis, Treatment Family Education/Counseling: Diagnosis, Treatment Departure 1 Departure Time of Disposition: 01:54 Impression: Primary Impression: Metabolic encephalopathy Additional Impressions: Altered mental status Elevated lactic acid level Elevated bilirubin Anemia Disposition: 09 ADMITTED INPATIENT Condition: Fair Discharged With: Self Critical Care Note Critical Care Time?: No Stability Stability form required: No Heart Score Heart Score: Heart Score Response (Comments) Value History Slightly Suspicious 0 EKG Repolarization Disturb 1 Age 45-64 1 Risk Factors 1 or 2 risk factors 1 Troponin N/A 0 Total 3 JESUS MACIAS PAC Sep 16, 2024 01:57
[2024-09-16] MEDS: LACTULOSE 10g/15ml SOLN 473ML PR ONE (02:45)
--- NOTE | 2024-09-16 03:52 | DVH ---
Exam: CT CT AB PEL WO CON-NO ORAL OR IV History: abd distention Comparison Study: CT CHST AB PEL WO CON-NO IV/ORAL on DOS: 03/30/23 Technique: Multidetector spiral CT of the abdomen was performed from lung bases to pubic symphysis. I maging was performed without IV contrast. Axial, coronal and sagittal multiplanar reformats were obta ined from the axial data set by the technologist. Radiation Dose : 1. Abdomen/Pelvis: CTDIvol 22.93 mGy, DLP 1494.71 mGy*cm. Findings: Evaluation of solid organs is limited due to lack of intravenous contrast use. Lung Bases: Slight interval decrease in right pleural effusion. Normal heart size. No pericardial ef fusion. Liver: Diffusely cirrhotic hepatic morphology redemonstrated. No focal lesions. Gallbladder and Biliary Tree: Unremarkable Spleen: Stably enlarged, measuring 17.0 cm in craniocaudal dimension. Pancreas: The pancreas is normal in appearance without focal lesion. Adrenal Glands: Unremarkable Kidneys: Kidneys demonstrate normal symmetric parenchymal attenuation without focal lesions, calculi or hydronephrosis. Bladder: Unremarkable Bowel: The stomach is grossly normal in appearance. Colonic diverticular disease of the descending an d sigmoid colon without evidence of acute diverticulitis. Small bowel and colon are normal in caliber and distribution. The appendix is not visualized; however, no secondary findings of acute appendicit is identified. Ascites: Stable small to moderate volume abdominal and pelvic ascites. Lymphadenopathy: No mesenteric, retroperitoneal or periportal lymphadenopathy. Abdominal Wall and Mesentery: Unremarkable. Vasculature: The visualized abdominal aorta is normal in size and caliber. Atherosclerotic vascular c alcifications. Prominent portal venous and splenic collateral vessels redemonstrated, consistent with cirrhosis and portal venous hypertension. Pelvic Organs: Unremarkable Musculoskeletal: No aggressive focal bony lesions, acute fractures or dislocation. Hardware present s tatus post bilateral total hip arthroplasty. IMPRESSION: 1. No acute abdominal or pelvic findings. 2. Stable sequelae of hepatic cirrhosis, splenomegaly and portal venous hypertension. 3. Stable small to moderate volume abdominopelvic ascites. 4. Slight interval decrease in small right pleural effusion. 5. Diverticulosis coli. Radiation optimization: All CT scans at this facility use at least one of these dose optimization harpreet hniques: automated exposure control mA and/or kV adjustment per patient size (includes targeted exam s where dose is matched to clinical indication) or iterative reconstruction.
[2024-09-16 04:13] LABS: Urine Bacteria FEW /hpf (None Seen); Urine Blood Negative /uL (Negative); Urine Clarity Turbid (Clear); Urine Color Yellow (Yellow); Urine Protein, UAD Negative (Negative); Urine Specific Gravity 1.011 (1.001-1.035); Urine Squamous Epithelial Cell FEW /hpf (<5); Urine Urobilinogen 2 mg/dL (Negative); Urine WBC < 1 /HPF (0-5); Urine pH 7.5 (5.0-9.0)
[2024-09-16] MEDS ORDERED: DEXTROSE (50%) 50ML SYRG IV PRN (04:15)
[2024-09-16] MEDS ORDERED: NITROGLYCERIN 0.4 MG SL TAB SL PRN (04:15)
[2024-09-16] MEDS ORDERED: MORPHINE SULFATE INJ 2 MG/ml SYRG IV PRN (04:15)
[2024-09-16] MEDS ORDERED: ACETAMINOPHEN 325 MG TAB PO PRN (04:15)
--- NOTE | 2024-09-16 04:22 | DVHHP2 ---
FRIEDA BRAUN MANGLE FEEDER 09/16/24 0422: History of Present Illness Reason for Visit: Altered mental status History of Present Illness Information in this HPI is limited due to the patient being ALOC. Acquired from EHR and emergency department physician. 59-year-old female with past medical history of liver cirrhosis, DM presents with complaints of ALOC. As per the ER physician patient was found down by the and called EMS. During the emergency department evaluation ammonia level found to be elevated at 119. Patient admitted for further evaluation and treatment Hepatobiliary: Cirrhosis Endocrine: Diabetes Past Social History Unable to complete social history due to patient condition Review of Systems Review of Systems Unable to complete ROS due to patient condition Allergies: Coded Allergies: Cephalexin (Unverified Allergy, Unknown, 06/17/17) Medications Current Medications Medications Dose Ordered Sig/Elizabeth Route Start Time Stop Time Status Last Admin Dose Admin Acetaminophen 650 mg Q6HP PRN PO 09/16/24 04:15 UNV Ondansetron HCl 4 mg Q4HP PRN IV 09/16/24 04:15 UNV Nitroglycerin 0.4 mg Q5MINP PRN SL 09/16/24 04:15 UNV Morphine Sulfate 2 mg Q30M PRN IV 09/16/24 04:15 UNV Lactulose 300 ml Q6HR MI 09/16/24 06:00 UNV Diagnostic Test (Pha) 1 strip Q6HR 09/16/24 06:00 UNV Insulin Human Regular Q6HR SC 09/16/24 06:00 UNV Dextrose 50 ml UD PRN IV 09/16/24 04:15 UNV Pantoprazole Sodium 40 mg DAILY IV 09/16/24 10:00 UNV Exam Vital Signs Vital Signs Date Time Temp Pulse Resp B/P (MAP) Pulse Ox O2 Delivery O2 Flow Rate FiO2 09/16/24 00:30 110 20 96 Room Air* 0 21 21 09/15/24 23:40 97.1 125/72 (89) 97.1 General Appearance: moderate distress, Other (Obtunded, sleeping, obese) HEENT: Atraumatic, PERRLA Respiratory: Other (Diminished air exchange) Cardiovascular: Normal S1, Normal S2 Abdominal: Normal bowel sounds, Soft, No tenderness, Other (Round) Extremities: No clubbing, No cyanosis, No edema Skin: No breakdown Neuro: Other (Unable to complete due to patient condition secondary to hepatic encephalopathy) Labs/Xrays Labs Test 09/16/24 02:59 09/16/24 02:24 09/16/24 00:40 09/15/24 23:52 Range/Units Lactic Acid Level 2.6 *H 0.4-2.0 mmol/L Troponin I High Sensitivity < 3 L </=34 ng/L Urine Color Yellow Yellow Urine Clarity Turbid H Clear Urine pH 7.5 5.0-9.0 Urine Specific [place] 1.011 1.001-1.035 Urine Protein Negative Negative Urine Ketones Negative Negative Urine Blood Negative Negative /uL Urine Nitrite Negative Negative Urine Bilirubin Negative Negative Urine Urobilinogen 2 H Negative mg/dL Urine Leukocyte Esterase Negative Negative /uL Urine RBC <1 0 - 4 /hpf Urine Microscopic WBC < 1 0-5 /HPF Urine Squamous Epithelial Cells Few <5 /hpf Urine Bacteria Few H None Seen /hpf Urine Glucose Normal Normal mg/dL Ammonia 119 *H 11-32 umol/L White Blood Count 5.0 4.4-10.8 10^3/uL Red Blood Count 3.60 L 4.0-5.20 10^6/uL Hemoglobin 11.7 L 12.2-16.2 g/dL Hematocrit 34.1 L 36.0-46.0 % Mean Corpuscular Volume 94.8 80.0-100.0 fL Mean Corpuscular Hemoglobin 32.5 H 28.0-32.0 pg Mean Corpuscular Hemoglobin Concent 34.3 32.0-36.0 g/dL Red Cell Distribution Width 15.7 H 11.8-14.3 % Platelet Count 63 L 140-450 10^3/uL Mean Platelet Volume 8.2 6.9-10.8 fL Neutrophils (%) (Auto) 77.3 37.0-80.0 % Lymphocytes (%) (Auto) 12.9 10.0-50.0 % Monocytes (%) (Auto) 6.4 0.0-12.0 % Eosinophils (%) (Auto) 2.3 0.0-7.0 % Basophils (%) (Auto) 1.1 0.0-2.0 % Neutrophils # (Auto) 3.9 1.6-8.6 10 ^3/uL Lymphocytes # (Auto) 0.6 0.4-5.4 10 ^3/uL Monocytes # (Auto) 0.3 0-1.3 10 ^3/uL Eosinophils # (Auto) 0.1 0-0.8 10 ^3/uL Basophils # (Auto) 0.1 0-0.2 10 ^3/uL Nucleated Red Blood Cells 0.2 % Platelet Estimate Decreased Sodium Level 138 136-145 mmol/L Potassium Level 3.8 3.5-5.1 mmol/L Chloride Level 103 98-107 mmol/L Carbon Dioxide Level 27 20-31 mmol/L Anion Gap 8 5-15 Blood Urea Nitrogen 9 9-23 mg/dL Creatinine 0.68 0.550-1.02 mg/dL Glomerular Filtration Rate Calc 100 >90 mL/min BUN/Creatinine Ratio 13.2 10.0-20.0 Serum Glucose 140 H 74-106 mg/dL Calcium Level 8.2 L 8.7-10.4 mg/dL Total Bilirubin 4.1 H 0.2-1.0 mg/dL Aspartate Amino Transferase (AST) 76 H 13-40 U/L Alanine Aminotransferase (ALT) 27 7-40 U/L Alkaline Phosphatase 135 H 46-116 U/L B-Type Natriuretic Peptide 20.49 0-100 pg/mL Total Protein 7.6 5.7-8.2 g/dL Albumin 2.6 L 3.2-4.8 g/dL Lipase 23 12-53 U/L Assessment/Plan Assessment/Plan Hepatic encephalopathy Liver cirrhosis, chronic Mild to moderate ascites Lactic acidosis T2DM Plan Admit S DU Gastroenterology consult. Lactulose enema q.6 hours. Consider interventional radiology consult for paracentesis. abdominal ultrasound tomorrow. Monitor CBC, BMP, ammonia level, LA UA/UDS pending. Blood cultures pending. Pressure ulcer precautions. Aspiration precautions NPO diet Blood glucose checks every 6 hours with regular insulin sliding scale coverage. GI prophylaxis Protonix/DVT PPX SCDs. Plan discussed with: Other (Staff nurse at bedside) My Orders Orders - FRIEDA BRAUN NP Procedure Category Date Status Time Admit ADMIT 09/16/24 Transmitted 04:13 Code Status CODE 09/16/24 Transmitted 04:13 Vital Signs GINO 09/16/24 In Process 04:13 Review Orders With GINO 09/16/24 In Process Adm. 04:13 Encourage Activity As GINO 09/16/24 In Process Tolerate 04:13 Npo (Nothing By DIET 09/16/24 Transmitted Mouth) Diet Breakfast Oxygen By Face Mask RT 09/16/24 Transmitted 04:13 Acetaminophen Tablet PHA 09/16/24 Logged (Tylenol Tablet) 04:15 Notify Of Changes [facility] 09/16/24 In Process From Base 04:13 Advance Directive GINO 09/16/24 In Process 04:13 Basic Metabolic Panel LAB 09/16/24 Logged 05:00 Basic Metabolic Panel LAB 09/17/24 Verified 05:00 Basic Metabolic Panel LAB 09/18/24 Verified 05:00 Basic Metabolic Panel LAB 09/19/24 Verified 05:00 Basic Metabolic Panel LAB 09/20/24 Verified 05:00 Complete Blood Count LAB 09/16/24 Logged 05:00 Complete Blood Count LAB 09/17/24 Verified 05:00 Complete Blood Count LAB 09/18/24 Verified 05:00 Complete Blood Count LAB 09/19/24 Verified 05:00 Complete Blood Count LAB 09/20/24 Verified 05:00 Patient Condition ORDERS 09/16/24 Transmitted 04:13 Allergies GINO 09/16/24 In Process 04:13 Ondansetron Hcl PHA 09/16/24 Logged (Zofran) 04:15 Sequential GINO 09/16/24 In Process Compression Device Nitroglycerin PHA 09/16/24 Logged Sublingual (Ntrostat 04:15 Morphine Sulfate PHA 09/16/24 Logged Injection 04:15 Stat Ekg For Chest [facility] 09/16/24 In Process Pain 04:13 Notify Of Changes [facility] 09/16/24 In Process From Base 04:13 Spray Gun Repairer Helper For [facility] 09/16/24 In Process 24 Hours 04:13 Emergency Dysrhythmia [facility] 09/16/24 In Process Protocol 04:13 Rhythm Strips Once [facility] 09/16/24 In Process Every Shift 04:13 Oxygen By Nasal RT 09/16/24 Transmitted Cannula 04:13 *[facility] CONS 09/16/24 Transmitted 04:13 Ammonia LAB 09/16/24 Logged 16:00 Ammonia LAB 09/17/24 Verified 04:00 Ammonia LAB 09/17/24 Verified 16:00 Ammonia LAB 09/18/24 Verified 04:00 Lactulose Rectal PHA 09/16/24 Logged 06:00 Glucose Blood PHA 09/16/24 Logged (Accu-Chek Comfort 06:00 Insulin R (Human) PHA 09/16/24 Logged (Insulin R) 06:00 Dextrose 50% Syringe PHA 09/16/24 Logged 04:15 Pantoprazole PHA 09/16/24 Logged (Protonix) 10:00 Urinalysis LAB 09/16/24 Transmitted 04:20 Drug Screen LAB 09/16/24 Transmitted 04:20 Date of Service: Sep 16, 2024 Billing Provider: MEENA MCPHERSON MD Common Visit Codes: NOT BILLABLE MEENA MCPHERSON MD 09/16/24 1422: Review of Systems Allergies: Coded Allergies: Cephalexin (Unverified Allergy, Unknown, 06/17/17) Additional Comments Additional Comments Additional Comments 59-year-old female with a known history of liver cirrhosis, hypertension, diabetes mellitus type 2, morbid obesity classII who initially presented to the hospital with altered mental status found to have 1. Acute metabolic/hypoglycemic encephalopathy 2. Advanced liver cirrhosis with mild to moderate ascites 3. Hyperammonemia 4. Diabetes mellitus type 2 5. Hypertension 6. Lactic acidosis suspected secondary to liver disease -lactulose p.r.n., recheck her ammonia level, repeat lactic acid. FRIEDA BRAUN NP Sep 16, 2024 04:22 MEENA MCPHERSON MD Sep 16, 2024 14:22
[2024-09-16] MEDS: LACTULOSE 20Gm/30ML SOLN ONE ×2 (05:06)
[2024-09-16] MEDS: LACTULOSE 10g/15ml SOLN 473ML PR SCH (05:33)
[2024-09-16 05:53] LABS: Basophils # (auto) 0 10 ^3/uL (0-0.2); Basophils % (auto) 0.5 % (0.0-2.0); Eosinophils # (auto) 0.1 10 ^3/uL (0-0.8); Eosinophils % (auto) 1.9 % (0.0-7.0); Hematocrit 35.8 % (36.0-46.0); Lymphocytes # (auto) 0.6 10 ^3/uL (0.4-5.4); Lymphocytes % (auto) 13.5 % (10.0-50.0); Mean Corpuscular Hemoglobin 33.2 pg (28.0-32.0); Mean Corpuscular Hgb Conc. 33.5 g/dL (32.0-36.0); Mean Corpuscular Volume 99.1 fL (80.0-100.0); Monocytes # (auto) 0.4 10 ^3/uL (0-1.3); Monocytes % (auto) 8.1 % (0.0-12.0); Neutrophils # (auto) 3.4 10 ^3/uL (1.6-8.6); Nucleated Red Blood Cells % 0.2 %; Platelet Count (auto) 45 10^3/uL (140-450); Red Blood Cells 3.61 10^6/uL (4.0-5.20); Red Cell Distribution Width 17.1 % (11.8-14.3); White Blood Cell 4.5 10^3/uL (4.4-10.8)
[2024-09-16] MEDS: ACCU-CHEK COMFORT CURVE STRIP VI SCH (06:00)
[2024-09-16] MEDS: InsuLIN REG 1unit/0.01ml Soln (100units/ml) SC SCH (06:00)
[2024-09-16 06:06] LABS: Opiate Scree,Urine Pos (NEGATIVE)
[2024-09-16 06:07] LABS: Amphetamine Screen, Urine Neg (NEGATIVE); Barbiturate Scree,Urine Neg (NEGATIVE); Benzodiazephine Screen, Urine Neg (NEGATIVE); Cannabinoid Screen, Urine Neg (NEGATIVE); Cocaine Screen, Urine Neg (NEGATIVE); Phencyclidine Screen, Urine Neg (NEGATIVE)
[2024-09-16 08:05] VITALS: PULSE 113; RESP 28; O2SAT 100
[2024-09-16 08:06] VITALS: PULSE 75; RESP 16; O2SAT 97
[2024-09-16] MEDS: ONDANSETRON HCL 4 MG/2 ML VIAL IV PRN (08:11)
[2024-09-16] MEDS: MORPHINE SULFATE INJ 2 MG/ml SYRG IV ONE (08:12)
[2024-09-16 08:36] LABS: Chloride 105 mmol/L (98-107); Sodium 142 mmol/L (136-145)
[2024-09-16 08:37] LABS: Anion Gap 10 (5-15); Carbon Dioxide 27 mmol/L (20-31)
[2024-09-16 08:41] LABS: Calcium 8.3 mg/dL (8.7-10.4)
[2024-09-16 08:42] LABS: BUN/Creatinine Ratio 16.9 (10.0-20.0); Blood Urea Nitrogen 10 mg/dL (9-23)
[2024-09-16 08:48] LABS: Glucose 116 mg/dL (74-106)
[2024-09-16] MEDS: PANTOPRAZOLE 40 MG/10 ML VIAL INJ IV SCH (10:13)
--- NOTE | 2024-09-16 10:28 | DVH ---
Procedure: US ABDOMEN LIMITED 09/16/2024 07:24 AM Indication: FLUID CHECK Comparison: US ABDOMEN LIMITED on DOS: 11/10/23, US GALLBLADDER on DOS: 09/17/23, US ABDOMEN LIMITED on DOS: 09/09/23 Technique: Sonogram of all 4 abdominal quadrants was obtained utilizing grayscale and color technique s. FINDINGS: Small amount of fluid is noted in all 4 quadrants with the largest pocket in the right lowe r quadrant measuring 4.3 x 4.3 cm. IMPRESSION: Small amount of ascites with the largest pocket in the right lower quadrant.
[2024-09-16] MEDS: LACTULOSE 20Gm/30ML SOLN PO SCH (12:54)
--- NOTE | 2024-09-16 13:22 | DVHINCON2 ---
Date of service: Sep 16, 2024 Referring Physician Dony Christianson Reason for Consultation Hepatic encephalopathy History of Present Illness 59-year-old female with past medical history of liver cirrhosis, DM presents with complaints of ALOC. As per the ER physician patient was found down by the and called EMS. During the emergency department evaluation ammonia level found to be elevated at 119. She was initially treated with lactulose enemas. Patient is much more awake alert today and responsive. Patient is hungry and wants to eat. She denied any GI bleeding. Her ammonia level is down to 58. Past Medical History Diabetes Liver cirrhosis Chronic kidney disease Morbid obesity Past Surgical History Hip surgery Family History: Diabetes mellitus G8 MOTHER G8 FATHER FH: liver cancer G8 FATHER FH: stomach cancer G8 MOTHER Hypertension G8 FATHER Allergies: Coded Allergies: Cephalexin (Unverified Allergy, Unknown, 06/17/17) Home Meds Active Scripts Pantoprazole Sodium Sesquihydr (Pantoprazole Sodium) 40 Mg Tab, 40 MG PO BID, #60 TAB Prov:SHAHEEN ZHENG MD 08/25/24 Lactulose (Lactulose) 10 Gm/15 Ml Kallie, 30 ML PO Q6HR, #1200 ML Prov:SHAHEEN ZHENG MD 08/25/24 Rifaximin (Xifaxan) 550 Mg Tab, 550 MG PO BID for 7 Days, #14 TAB Prov:DONN MCDANIEL RESIDENT 11/13/23 Lactulose (Lactulose) 10 Gm/15 Ml Kallie, 10 GM PO BID for 30 Days, ML Prov:DONN MCDANIEL RESIDENT 11/13/23 Levofloxacin Hemihydrate (LEVOFLOXACIN) 500 Mg Tab, 1 TAB PO DAILY for 3 Days, #3 TAB Prov:MEENA MCPHERSON MD 09/18/23 Lactulose (Lactulose) 10 Gm/15 Ml Kallie, 20 GM PO BID, #240 ML 1 Refill Prov:SHAHEEN ZHENG MD 09/12/23 Rifaximin (Xifaxan) 550 Mg Tab, 1 TAB PO BID, #60 TAB Prov:SHAHEEN ZHENG MD 09/12/23 Reported Medications Metformin Hydrochloride (Metformin Hcl) 1,000 Mg Tab, 1000 MG PO BID, TAB 09/09/23 Omeprazole (Omeprazole Dr) 20 Mg Cap, 20 MG PO DAILY, CAP 09/09/23 Simvastatin (Simvastatin) 10 Mg Tab, 5 MG PO DAILY, TAB 09/09/23 Semaglutide (Ozempic) 4 Mg/3 Ml Inj, 1 MG SC QWEEKLY 09/09/23 Fluoxetine Hcl (Fluoxetine Hcl) 40 Mg Cap, 1 CAP PO DAILY 09/09/23 Atenolol (Atenolol) 100 Mg Tab, 1 TAB PO DAILY for hypertension 09/09/23 Oxycodone Hcl (OXYCODONE HCL) 5 Mg Tb, 1 TAB PO Q6HPRN PRN for pain management 09/09/23 Current Medications Current Medications Medications (Trade) Dose Ordered Sig/Elizabeth Route PRN Reason Start Time Stop Time Status Last Admin Acetaminophen (Tylenol Tablet) 650 mg Q6HP PRN PO PAIN SCALE 1-3 OR TEMP>100.4 09/16/24 04:15 Ondansetron HCl (Zofran) 4 mg Q4HP PRN IV NAUSEA / VOMITING 09/16/24 04:15 09/16/24 08:11 Nitroglycerin (Ntrostat Sublingual) 0.4 mg Q5MINP PRN SL FOR CHEST PAIN 09/16/24 04:15 Morphine Sulfate 2 mg Q30M PRN IV FOR CHEST PAIN 09/16/24 04:15 Lactulose 300 ml Q6HR MT 09/16/24 06:00 09/16/24 12:25 DC 09/16/24 05:33 Diagnostic Test (Pha) (Accu-Chek Comfort Curve T) 1 strip Q6HR 09/16/24 06:00 09/16/24 12:08 Insulin Human Regular (InsuLIN R) Q6HR SC 09/16/24 06:00 Dextrose 50 ml UD PRN IV Blood Sugar LESS THAN 60 09/16/24 04:15 Pantoprazole Sodium (Protonix) 40 mg DAILY IV 09/16/24 10:00 09/16/24 10:13 Lactulose 30 ml TID PO 09/16/24 12:30 09/16/24 12:54 Acetaminophen/ Hydrocodone Bitart ([place] 5/325MG Tab) 1 tab Q4HPRN PRN PO MODERATE PAIN (4-6 PAIN SCALE) 09/16/24 13:00 UNV Vital Signs Vital Signs Date Time Temp Pulse Resp B/P (MAP) Pulse Ox O2 Delivery O2 Flow Rate FiO2 09/16/24 12:00 120 09/16/24 10:47 21 119/68 09/16/24 08:05 100 Nasal Cannula* 2 28 09/16/24 08:00 98.0 98.0 Physical Exam General Appearance: No acute distress, awake and responsive HEENT: Atraumatic, PERRLA Respiratory: clear Cardiovascular: Normal S1, Normal S2 Abdominal: Normal bowel sounds, Soft, No tenderness,obese Extremities: No clubbing, No cyanosis, No edema Neuro nonfocal Labs/Diagnostic Data Labs Test 09/16/24 12:08 09/16/24 07:46 09/16/24 05:11 09/16/24 02:59 Range/Units POC Glucose 99 70-106 mg/dl Sodium Level 142 136-145 mmol/L Potassium Level 3.0 L 3.5-5.1 mmol/L Chloride Level 105 98-107 mmol/L Carbon Dioxide Level 27 20-31 mmol/L Anion Gap 10 5-15 Blood Urea Nitrogen 10 9-23 mg/dL Creatinine 0.59 0.550-1.02 mg/dL Glomerular Filtration Rate Calc 103 >90 mL/min BUN/Creatinine Ratio 16.9 10.0-20.0 Serum Glucose 116 H 74-106 mg/dL Calcium Level 8.3 L 8.7-10.4 mg/dL Ammonia 55 H 11-32 umol/L White Blood Count 4.5 4.4-10.8 10^3/uL Red Blood Count 3.61 L 4.0-5.20 10^6/uL Hemoglobin 12.0 L 12.2-16.2 g/dL Hematocrit 35.8 L 36.0-46.0 % Mean Corpuscular Volume 99.1 # 80.0-100.0 fL Mean Corpuscular Hemoglobin 33.2 H 28.0-32.0 pg Mean Corpuscular Hemoglobin Concent 33.5 32.0-36.0 g/dL Red Cell Distribution Width 17.1 H 11.8-14.3 % Platelet Count 45 L 140-450 10^3/uL Mean Platelet Volume 8.3 6.9-10.8 fL Neutrophils (%) (Auto) 76.0 37.0-80.0 % Lymphocytes (%) (Auto) 13.5 10.0-50.0 % Monocytes (%) (Auto) 8.1 0.0-12.0 % Eosinophils (%) (Auto) 1.9 0.0-7.0 % Basophils (%) (Auto) 0.5 0.0-2.0 % Neutrophils # (Auto) 3.4 1.6-8.6 10 ^3/uL Lymphocytes # (Auto) 0.6 0.4-5.4 10 ^3/uL Monocytes # (Auto) 0.4 0-1.3 10 ^3/uL Eosinophils # (Auto) 0.1 0-0.8 10 ^3/uL Basophils # (Auto) 0 0-0.2 10 ^3/uL Nucleated Red Blood Cells 0.2 % Lactic Acid Level 2.6 *H 0.4-2.0 mmol/L Troponin I High Sensitivity < 3 L </=34 ng/L Test 09/16/24 02:24 09/15/24 23:52 Range/Units Urine Color Yellow Yellow Urine Clarity Turbid H Clear Urine pH 7.5 5.0-9.0 Urine Specific [place] 1.011 1.001-1.035 Urine Protein Negative Negative Urine Ketones Negative Negative Urine Blood Negative Negative /uL Urine Nitrite Negative Negative Urine Bilirubin Negative Negative Urine Urobilinogen 2 H Negative mg/dL Urine Leukocyte Esterase Negative Negative /uL Urine RBC <1 0 - 4 /hpf Urine Microscopic WBC < 1 0-5 /HPF Urine Squamous Epithelial Cells Few <5 /hpf Urine Bacteria Few H None Seen /hpf Urine Glucose Normal Normal mg/dL Urine Opiates Screen Pos NEGATIVE Urine Fentanyl Screen Neg NEGATIVE Urine Barbiturates Screen Neg NEGATIVE Urine Phencyclidine Screen Neg NEGATIVE Urine Amphetamines Screen Neg NEGATIVE Urine Benzodiazepines Screen Neg NEGATIVE Urine Cocaine Screen Neg NEGATIVE Urine Cannabinoids Screen Neg NEGATIVE Platelet Estimate Decreased Total Bilirubin 4.1 H 0.2-1.0 mg/dL Aspartate Amino Transferase (AST) 76 H 13-40 U/L Alanine Aminotransferase (ALT) 27 7-40 U/L Alkaline Phosphatase 135 H 46-116 U/L B-Type Natriuretic Peptide 20.49 0-100 pg/mL Total Protein 7.6 5.7-8.2 g/dL Albumin 2.6 L 3.2-4.8 g/dL Lipase 23 12-53 U/L Abd USG IMPRESSION: Small amount of ascites with the largest pocket in the right lower quadrant. CT ABD PELVIS IMPRESSION: 1. No acute abdominal or pelvic findings. 2. Stable sequelae of hepatic cirrhosis, splenomegaly and portal venous hypertension. 3. Stable small to moderate volume abdominopelvic ascites. 4. Slight interval decrease in small right pleural effusion. 5. Diverticulosis coli. CT Head IMPRESSION: 1. No acute intracranial abnormality. 2. 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 CXR IMPRESSION: Low lung volumes with mild bronchovascular crowding otherwise no active cardiopulmonary disease. Problems(with codes): (1) Altered mental status (2) Metabolic encephalopathy (3) Acute hepatic encephalopathy (4) Elevated lactic acid level (5) Liver cirrhosis Plan/Recommendation Assessment plan Patient has well-compensated cirrhosis of unclear etiology possibly related to mesh and obesity Meld score is 17 points which is suggestive of good prognosis Continue supportive care Lactulose 30 mL p.o. twice a day Patient is on Keppra Start clear liquid diet advance as tolerated Outpatient follow up with the GI specialist to continue to monitor her liver enzymes Ascitic fluid pocket too small to be Continue supportive care and lactic acidosis gets worse consider IV antibiotics, no clear-cut source of infection at this time Plan discussed with: Patient, Other (ER Nurse) DARELL CANTU MD Sep 16, 2024 13:22
[2024-09-16] MEDS: HYDROcodone-ACET 5/325MG TAB PO PRN (14:34)
[2024-09-16 17:00] VITALS: BP 152/77; PULSE 104; RESP 20; TEMP 98.1; O2SAT 100
[2024-09-16 20:00] VITALS: PULSE 104; PULSE 106; RESP 19; O2SAT 97
[2024-09-16 21:00] VITALS: BP 107/63; PULSE 104; RESP 19; TEMP 97.8; O2SAT 97
[2024-09-17] VITALS (8 sets, daily range): BP systolic 128–141; BP diastolic 68–80; PULSE 90–118; RESP 16–19; TEMP 97.7–98.2; O2SAT 96–100
[2024-09-17] MEDS ORDERED: SEMA4INJ SC (01:57)
[2024-09-17] MEDS ORDERED: ONDA-155 PO (01:57)
[2024-09-17 07:23] LABS: Basophils # (auto) 0 10 ^3/uL (0-0.2); Eosinophils # (auto) 0.3 10 ^3/uL (0-0.8); Lymphocytes # (auto) 0.7 10 ^3/uL (0.4-5.4); Mean Corpuscular Hemoglobin 32.6 pg (28.0-32.0); Monocytes # (auto) 0.4 10 ^3/uL (0-1.3); Neutrophils # (auto) 3.6 10 ^3/uL (1.6-8.6); White Blood Cell 5.1 10^3/uL (4.4-10.8)
[2024-09-17 07:26] LABS: Basophils % (auto) 0.7 % (0.0-2.0); Eosinophils % (auto) 6.6 % (0.0-7.0); Hematocrit 32.5 % (36.0-46.0); Hemoglobin 11.1 g/dL (12.2-16.2); Lymphocytes % (auto) 13.5 % (10.0-50.0); Mean Corpuscular Volume 95.7 fL (80.0-100.0); Monocytes % (auto) 7.6 % (0.0-12.0); Neutrophils % (auto) 71.6 % (37.0-80.0); Nucleated Red Blood Cells % 0.3 %; Platelet Count (auto) 59 10^3/uL (140-450); Red Cell Distribution Width 16.2 % (11.8-14.3)
[2024-09-17 07:37] LABS: Lactic Acid w/Reflex 2.1 mmol/L (0.4-2.0)
[2024-09-17 09:22] LABS: Alanine Aminotransferase 25 U/L (7-40); Alkaline Phosphatase 114 U/L (46-116); Anion Gap 14 (5-15); BUN/Creatinine Ratio 14.5 (10.0-20.0); Blood Urea Nitrogen 9 mg/dL (9-23); Carbon Dioxide 23 mmol/L (20-31); Sodium 144 mmol/L (136-145); Total Protein 7.2 g/dL (5.7-8.2)
[2024-09-17 09:23] LABS: Albumin 2.5 g/dL (3.2-4.8); Aspartate Aminotransferase 61 U/L (13-40); Bilirubin, Total 4.6 mg/dL (0.2-1.0); Calcium 8.4 mg/dL (8.7-10.4); Chloride 107 mmol/L (98-107); Glucose 109 mg/dL (74-106); Potassium 3.2 mmol/L (3.5-5.1)
--- NOTE | 2024-09-17 11:58 | ECG ---
[facility] Test Date: 2024-09-15 Test Time: 23:42:30 Pat Name: GEOFFREY BYRD Department: ED Room: [facility]T B Gender: F Order Processing Specialist: : [id number] Requested By: JESUS MACIAS Order Number: [id number] Reading MD: Yandel Melendez Measurements Intervals [place] Rate: 97 P: 61 DC: 172 QRS: 76 QRSD: 74 T: 20 QT: 386 QTc: 491 Interpretive Statements Sinus rhythm Low voltage, precordial leads Anteroseptal infarct, old Electronically Signed On 09-19-2024 17:05:59 PDT by Yandel Melendez Please click the below link to view image of tracing.
--- NOTE | 2024-09-17 13:51 | DVHPN2 ---
Progress Note Date Seen: Sep 17, 2024 Resident Creating Document: ROJELIO GOMES RESIDENT Medical Necessity Reason Pt with a Central, PICC or Fol: No Subjective Review of Systems Patient seen and examined at the bedside. Patient is alert and able to answer all questions. Patient also asked to advance diet, reported no new complaints monitor CMP and ammonia Patient reports: No new complaints Objective vital signs Vital Sign Date Time Temp Pulse Resp B/P (MAP) Pulse Ox O2 Delivery O2 Flow Rate FiO2 09/17/24 12:50 97.9 99 17 128/68 (88) 100 97.9 09/17/24 08:05 Room Air* 0 21 Total Intake and Output 09/16/24 09/16/24 09/17/24 14:59 22:59 06:59 Intake Total 375 ml Output Total 1000 ml 300 ml Balance -1000 ml 75 ml medications Current Medications Medications Dose Ordered Sig/Elizabeth Route Start Time Stop Time Status Last Admin Dose Admin Acetaminophen 650 mg Q6HP PRN PO 09/16/24 04:15 Ondansetron HCl 4 mg Q4HP PRN IV 09/16/24 04:15 09/16/24 08:11 4 MG Nitroglycerin 0.4 mg Q5MINP PRN SL 09/16/24 04:15 Morphine Sulfate 2 mg Q30M PRN IV 09/16/24 04:15 Diagnostic Test (Pha) 1 strip Q6HR 09/16/24 06:00 09/17/24 12:00 1 STRIP Insulin Human Regular Q6HR SC 09/16/24 06:00 09/16/24 23:38 2 UNITS Dextrose 50 ml UD PRN IV 09/16/24 04:15 Pantoprazole Sodium 40 mg DAILY IV 09/16/24 10:00 09/17/24 09:32 40 MG Lactulose 30 ml TID PO 09/16/24 12:30 09/17/24 06:15 30 ML Acetaminophen/ Hydrocodone Bitart 1 tab Q4HPRN PRN PO 09/16/24 13:00 09/17/24 06:16 1 TAB Examination General Appearance: Alert, Oriented X3, Cooperative, Not in acute distress HEENT: Atraumatic, Mucous membranes moist/pink Respiratory: Clear to auscultation, Normal air movement, No added sounds Cardiovascular: Regular rate, Normal S1, Normal S2, No murmurs Abdominal: Active bowel sounds, Soft, no distention, no tenderness Extremities: No edema, Normal pulses, No tenderness/swelling Skin: No Significant rash, except past surgical scars Neuro: Normal speech, sensorimotor deficits none Psych/Mental Status: Mental status NL, Mood NL Nurse was there as sharperone during ex laboratory and microbiology Laboratory Tests 09/17/24 06:08 Test 09/17/24 06:08 Range/Units Serum Glucose 109 H 74-106 mg/dL Microbiology Date/Time Source Procedure Growth Status 09/16/24 07:36 Blood Blood Culture - Preliminary NO GROWTH AFTER 24 HOURS OF INCUBATION. Resulted Labs and/or images reviewed: Labs reviewed by me, Image(s) reviewed by me Problem List/Assessment/Plan Problem List/Assessment/Plan Altered mental status Metabolic encephalopathy Acute hepatic encephalopathy Elevated lactic acid level Liver cirrhosis Plan/Recommendation - Patient has well-compensated cirrhosis of unclear etiology possibly related to mesh and obesity - Meld score is 17 points which is suggestive of good prognosis - Continue supportive care - Lactulose 30 mL p.o. twice a day - Patient is on Keppra - Soft diet advance as tolerated - Outpatient follow up with the GI specialist to continue to monitor her liver enzymes - Ascitic fluid pocket too small to be - Continue supportive care and lactic acidosis gets worse consider IV antibiotics, no clear-cut source of infection at this time - CT: Stable sequelae of hepatic cirrhosis, splenomegaly and portal venous hypertension. Stable small to moderate volume abdominopelvic ascites. Diverticulosis coli. Thank you so much for the opportunity to consult on your patient. GI team will follow the patient Case an action plan discussed with Dr. Arline Nielsen. Complex care planning needed total 49 minutes of detailed discussion. Plan discussed with: Patient My Orders My Orders Orders - ROJELIO GOMES RESIDENT Procedure Category Date Status Time PTPTT LAB 09/17/24 Verified 13:47 ROJELIO GOMES RESIDENT Sep 17, 2024 13:51
[2024-09-17 15:37] LABS: INR 1.59 (0.9-1.15); Partial Thromboplastin Time 37.3 SEC (24.5-34.5); Prothrombin Time 16.1 sec (9.3-11.8)
--- NOTE | 2024-09-17 16:04 | DVHDS2 ---
Discharge Summary Date of Admission Sep 16, 2024 at 04:13 Date of Discharge: Sep 17, 2024 Labs/Diagnostic Data: Laboratory Results Test 09/17/24 15:50 09/17/24 14:40 09/17/24 12:23 09/17/24 06:08 Prothrombin Time 16.1 sec (9.3-11.8) Prothrombin Time INR 1.59 (0.9-1.15) Activated Partial Thromboplast Time 37.3 SEC (24.5-34.5) POC Glucose 107 mg/dl (70-106) White Blood Count 5.1 10^3/uL (4.4-10.8) Red Blood Count 3.40 10^6/uL (4.0-5.20) Hemoglobin 11.1 g/dL (12.2-16.2) Hematocrit 32.5 % (36.0-46.0) Mean Corpuscular Volume 95.7 fL (80.0-100.0) Mean Corpuscular Hemoglobin 32.6 pg (28.0-32.0) Mean Corpuscular Hemoglobin Concent 34.0 g/dL (32.0-36.0) Red Cell Distribution Width 16.2 % (11.8-14.3) Platelet Count 59 10^3/uL (140-450) Mean Platelet Volume 8.0 fL (6.9-10.8) Neutrophils (%) (Auto) 71.6 % (37.0-80.0) Lymphocytes (%) (Auto) 13.5 % (10.0-50.0) Monocytes (%) (Auto) 7.6 % (0.0-12.0) Eosinophils (%) (Auto) 6.6 % (0.0-7.0) Basophils (%) (Auto) 0.7 % (0.0-2.0) Neutrophils # (Auto) 3.6 10 ^3/uL (1.6-8.6) Lymphocytes # (Auto) 0.7 10 ^3/uL (0.4-5.4) Monocytes # (Auto) 0.4 10 ^3/uL (0-1.3) Eosinophils # (Auto) 0.3 10 ^3/uL (0-0.8) Basophils # (Auto) 0 10 ^3/uL (0-0.2) Nucleated Red Blood Cells 0.3 % Sodium Level 144 mmol/L (136-145) Potassium Level 3.2 mmol/L (3.5-5.1) Chloride Level 107 mmol/L (98-107) Carbon Dioxide Level 23 mmol/L (20-31) Anion Gap 14 (5-15) Blood Urea Nitrogen 9 mg/dL (9-23) Creatinine 0.62 mg/dL (0.550-1.02) Glomerular Filtration Rate Calc 102 mL/min (>90) BUN/Creatinine Ratio 14.5 (10.0-20.0) Serum Glucose 109 mg/dL (74-106) Lactic Acid Level 2.1 mmol/L (0.4-2.0) Calcium Level 8.4 mg/dL (8.7-10.4) Ferritin 127.6 ng/mL (10-291) Total Bilirubin 4.6 mg/dL (0.2-1.0) Aspartate Amino Transferase (AST) 61 U/L (13-40) Alanine Aminotransferase (ALT) 25 U/L (7-40) Alkaline Phosphatase 114 U/L (46-116) Total Protein 7.2 g/dL (5.7-8.2) Albumin 2.5 g/dL (3.2-4.8) Test 09/16/24 02:59 09/16/24 02:24 09/15/24 23:52 Troponin I High Sensitivity < 3 ng/L (</=34) Urine Color Yellow (Yellow) Urine Clarity Turbid (Clear) Urine pH 7.5 (5.0-9.0) Urine Specific [place] 1.011 (1.001-1.035) Urine Protein Negative (Negative) Urine Ketones Negative (Negative) Urine Blood Negative /uL (Negative) Urine Nitrite Negative (Negative) Urine Bilirubin Negative (Negative) Urine Urobilinogen 2 mg/dL (Negative) Urine Leukocyte Esterase Negative /uL (Negative) Urine RBC <1 /hpf (0 - 4) Urine Microscopic WBC < 1 /HPF (0-5) Urine Squamous Epithelial Cells Few /hpf (<5) Urine Bacteria Few /hpf (None Seen) Urine Glucose Normal mg/dL (Normal) Urine Opiates Screen Pos (NEGATIVE) Urine Fentanyl Screen Neg (NEGATIVE) Urine Barbiturates Screen Neg (NEGATIVE) Urine Phencyclidine Screen Neg (NEGATIVE) Urine Amphetamines Screen Neg (NEGATIVE) Urine Benzodiazepines Screen Neg (NEGATIVE) Urine Cocaine Screen Neg (NEGATIVE) Urine Cannabinoids Screen Neg (NEGATIVE) Platelet Estimate Decreased B-Type Natriuretic Peptide 20.49 pg/mL (0-100) Lipase 23 U/L (12-53) Other Laboratory Tests 09/17/24 06:08 Brief Hx & Hospital Course: 59-year-old female with a known history of liver cirrhosis, hypertension, diabetes mellitus type 2, morbid obesity classII who initially presented to the hospital with altered mental status found to have acute hypoglycemic encephalopathy. Patient does have advanced liver cirrhosis with mild to moderate ascites. Patient was given lactulose currently stable to be discharged. Patient needs to follow up with the PCP as well as GI gastro group in 1-2 weeks. Patient is currently understand verbalized understanding and agreeable to plan. Patient does have known history of rheumatoid arthritis currently on morphine p.o. at home. Condition at Discharge: Stable Final Diagnosis/Problems List 59-year-old female with a known history of liver cirrhosis, hypertension, diabetes mellitus type 2, morbid obesity classII who initially presented to the hospital with altered mental status found to have 1. Acute metabolic/hypoglycemic encephalopathy 2. Advanced liver cirrhosis with mild to moderate ascites 3. Hyperammonemia 4. Diabetes mellitus type 2 5. Hypertension 6. Lactic acidosis suspected secondary to liver diseas Discharge Disposition: Home SNF Discharge Will this Physician continue t: No Discharge Statement: "Patient was advised to return to the ER or call 911 if any headaches, dizziness, shortness of breath, chest pain, abdominal pain, bleeding, fevers, or worsening of medical condition. Patient was counseled about treatment plan, medications, possible side effects, patientverbalized understanding. All questions were answered to the best of my ability. This discharge took greater then 30 minutes in planning, reviewing documentation, counseling the patient, and discussing with other team members." ASSESSMENT ASSESSMENT Assessment Date of Service: Sep 17, 2024 Billing Provider: MEENA MCPHERSON MD Common Visit Codes: NOT BILLABLE MEENA MCPHERSON MD Sep 17, 2024 16:04
== END 2024-09-17 18:10 | disposition home or self-care (01) | DRG 441 ==
LOC: EDBD 23:36 → EDUNIT# 23:36 → ER 23:36 → OVERFLOW 09-16 04:13 → TELE-WESTW 09-16 17:43
PROVIDERS: ADMIT Nurse Practitioner Family; ATTEND Nurse Practitioner Family
DX: K76.82 Hepatic encephalopathy (principal); G93.41 Metabolic encephalopathy; E87.20 Acidosis, unspecified; R18.8 Other ascites; E11.649 Type 2 diabetes mellitus with hypoglycemia without coma; K74.60 Unspecified cirrhosis of liver; F17.200 Nicotine dependence, unspecified, uncomplicated; D64.9 Anemia, unspecified; N18.9 Chronic kidney disease, unspecified; M06.9 Rheumatoid arthritis, unspecified; I12.9 Hypertensive chronic kidney disease with stage 1 through stage 4 chronic kidney disease, or unspecified chronic kidney disease; E11.22 Type 2 diabetes mellitus with diabetic chronic kidney disease; E66.01 Morbid (severe) obesity due to excess calories; Z68.37 Body mass index [BMI] 37.0-37.9, adult; Z88.1 Allergy status to other antibiotic agents; Z79.899 Other long term (current) drug therapy; Z83.3 Family history of diabetes mellitus; Z80.0 Family history of malignant neoplasm of digestive organs; Z82.49 Family history of ischemic heart disease and other diseases of the circulatory system; Z79.84 Long term (current) use of oral hypoglycemic drugs; Z79.891 Long term (current) use of opiate analgesic
CPT/HCPCS: 36415; 70450; 71045; 74176; 76705; 80048; 80053; 80307; 81001; 82140; 82728; 82962; 83605; 83690; 83880; 84484; 85025; 85610; 85730; 86038; 87040; 93005; 96361; 96365; G0378; J1815; J2405; J2470

== ENCOUNTER 2024-09-24 11:15 | Inpatient (IN) | payer OTHER ==
[~2024-09-24] VITALS: Ht 152.4 cm; Wt 90.0 kg
[~2024-09-24 11:15] MED LIST changes: -METF-372 PO; +ONDA-155 PO; -SIMV10TA20 PO
--- NOTE | 2024-09-24 11:32 | ED.PDOC ---
Altered Mental Status HPI Comments 59 y.o female with PMHx of DM, HTN, liver cirrhosis, and seizures, presents to the ED via EMS for an evaluation of confusion. Patient was brought in by spouse who reported patient was last seen normal at her baseline x 4 days ago. Patient is only able to tell us her complaint of body pain with shakiness and has been dropping everything. Spouse reports patient has been vomiting with decreased appetite, is unable to recall the date and needs more assistance now. Prior to this episode, patient is usually able to ambulate on her own with no assistance. Spouse does mention about 3 weeks ago, patient was diagnosed with hyperammonemia and developed similar symptoms then. Patient is taking lactulose and states she is complaint with it, as well as the rest of her medications. Time Seen by MD: 11:20 Primary Care Provider: SKYLAR Alex Notes: Nurses Notes, Medications, Allergies Allergies: Coded Allergies: Cephalexin (Unverified Allergy, Unknown, 06/17/17) Home Meds Active Scripts Pantoprazole Sodium Sesquihydr (Pantoprazole Sodium) 40 Mg Tab, 40 MG PO BID, #60 TAB Prov:SHAHEEN ZHENG MD 08/25/24 Lactulose (Lactulose) 10 Gm/15 Ml Kallie, 30 ML PO Q6HR, #1200 ML Prov:SHAHEEN ZHENG MD 08/25/24 Rifaximin (Xifaxan) 550 Mg Tab, 550 MG PO BID for 7 Days, #14 TAB Prov:DONN MCDANIEL RESIDENT 11/13/23 Lactulose (Lactulose) 10 Gm/15 Ml Kallie, 10 GM PO BID for 30 Days, ML Prov:DONN MCDANIEL RESIDENT 11/13/23 Levofloxacin Hemihydrate (LEVOFLOXACIN) 500 Mg Tab, 1 TAB PO DAILY for 3 Days, #3 TAB Prov:MEENA MCPHERSON MD 09/18/23 Lactulose (Lactulose) 10 Gm/15 Ml Kallie, 20 GM PO BID, #240 ML 1 Refill Prov:SHAHEEN ZHENG MD 09/12/23 Rifaximin (Xifaxan) 550 Mg Tab, 1 TAB PO BID, #60 TAB Prov:SHAHEEN ZHENG MD 09/12/23 Reported Medications Ondansetron HCl (Ondansetron) 4 Mg Tab, 4 MG PO, TAB 09/17/24 Semaglutide (Ozempic) 4 Mg/3 Ml Inj, 4 MG SC, INJ 09/17/24 Omeprazole (Omeprazole Dr) 20 Mg Cap, 20 MG PO DAILY, CAP 09/09/23 Fluoxetine Hcl (Fluoxetine Hcl) 40 Mg Cap, 1 CAP PO DAILY 09/09/23 Atenolol (Atenolol) 100 Mg Tab, 1 TAB PO DAILY for hypertension 09/09/23 Oxycodone Hcl (OXYCODONE HCL) 5 Mg Tb, 1 TAB PO Q6HPRN PRN for pain management 09/09/23 Discontinued Reported Medications Metformin Hydrochloride (Metformin Hcl) 1,000 Mg Tab, 1000 MG PO BID, TAB 09/09/23 Simvastatin (Simvastatin) 10 Mg Tab, 5 MG PO DAILY, TAB 09/09/23 Semaglutide (Ozempic) 4 Mg/3 Ml Inj, 1 MG SC QWEEKLY 09/09/23 Information Source: Spouse Mode of Arrival: Wheelchair Severity: Moderate Timing: Days (4) Duration: Since onset Quality: Confusion Recent: Nausea, Vomiting, Other History of: Diabetes Associated Signs and Symptoms: Other Past Medical History PAST MEDICAL HISTORY: DM, HTN, Liver, Seizures Surgical History: Denies all surgeries [employer]ACHINE History: Denies all [employer]ACHINE Hx Family History Family History: Unknown Social History Smoker: Non-Smoker Alcohol: Denies ETOH Use Drugs: Denies Drug Use Lives In: Home Musculoskeletal: reports: muscle pain Unable to Obtain due to: Other (patient appears confused ) Physical Exam General Appearance: No Apparent Distress, Obese HEENT: PERRL/EOMI, Other (No facial asymmetry. Moist mucous membranes.) Neck: Full Range of Motion, Normal Inspection Respiratory: Lungs Clear, No Accessory Muscle Use, No Respiratory Distress, Normal Breath Sounds Cardiovascular: No Edema, No JVD, Regular Rate/Rhythm Breast Exam: Deferred Gastrointestinal: Non Tender, Soft Genitalia: Deferred Pelvic: Deferred Rectal: Deferred Extremities: Normal inspection, Normal range of motion, Non-tender, No pedal edema Neurologic: Alert (Oriented x3), Normal Affect, Normal Mood, Other (Moves all extremities. No gross focal deficit.) Cerebellar Function: NOT DONE Reflexes: NOT DONE Skin: Dry, Normal Color, Warm Lymphatic: NOT DONE EKG EKG : Comments Sinus rhythm, rate 88, normal intervals, normal axis, possible old anteroseptal infarct, nonspecific T change. Was a procedure done? Was a procedure done?: No Differential Diagnosis (ALOC) Differential Diagnosis: Dehydration, Hypoglycemia, Encephalopathy, Sepsis, Sei zure, Closed Head Injury, CVA, Mass Lesion, SAH, Drug Overdose, ETOH Intoxication, Heart Failure, Renal Failure X-Ray, Labs, Meds, VS Vital Signs Date Time Temp Pulse Resp B/P (MAP) Pulse Ox O2 Delivery O2 Flow Rate FiO2 09/24/24 11:55 91 18 100 Room Air* 0 21 09/24/24 11:55 97.8 98 18 108/66 (80) 100 97.8 09/24/24 11:31 88 09/24/24 11:21 97.7 82 18 116/60 (78) 100 97.7 Lab Test 09/24/24 12:52 09/24/24 12:00 09/24/24 11:50 09/24/24 11:24 Range/Units Troponin I High Sensitivity < 3 L < 3 L </=34 ng/L White Blood Count 3.7 L 4.4-10.8 10^3/uL Red Blood Count 3.56 L 4.0-5.20 10^6/uL Hemoglobin 11.4 L 12.2-16.2 g/dL Hematocrit 34.3 L 36.0-46.0 % Mean Corpuscular Volume 96.5 80.0-100.0 fL Mean Corpuscular Hemoglobin 32.0 28.0-32.0 pg Mean Corpuscular Hemoglobin Concent 33.2 32.0-36.0 g/dL Red Cell Distribution Width 17.4 H 11.8-14.3 % Platelet Count 67 L 140-450 10^3/uL Mean Platelet Volume 8.1 6.9-10.8 fL Neutrophils (%) (Auto) 64.2 37.0-80.0 % Lymphocytes (%) (Auto) 17.1 10.0-50.0 % Monocytes (%) (Auto) 10.7 0.0-12.0 % Eosinophils (%) (Auto) 7.0 0.0-7.0 % Basophils (%) (Auto) 1.0 0.0-2.0 % Neutrophils # (Auto) 2.4 1.6-8.6 10 ^3/uL Lymphocytes # (Auto) 0.6 0.4-5.4 10 ^3/uL Monocytes # (Auto) 0.4 0-1.3 10 ^3/uL Eosinophils # (Auto) 0.3 0-0.8 10 ^3/uL Basophils # (Auto) 0 0-0.2 10 ^3/uL Nucleated Red Blood Cells 0.2 % Sodium Level 141 136-145 mmol/L Potassium Level 3.3 L 3.5-5.1 mmol/L Chloride Level 104 98-107 mmol/L Carbon Dioxide Level 30 20-31 mmol/L Anion Gap 7 5-15 Blood Urea Nitrogen 9 9-23 mg/dL Creatinine 0.90 0.550-1.02 mg/dL Glomerular Filtration Rate Calc 73 >90 mL/min BUN/Creatinine Ratio 10.0 10.0-20.0 Serum Glucose 125 H 74-106 mg/dL Calcium Level 8.5 L 8.7-10.4 mg/dL Total Bilirubin 4.0 H 0.2-1.0 mg/dL Aspartate Amino Transferase (AST) 60 H 13-40 U/L Alanine Aminotransferase (ALT) 31 7-40 U/L Alkaline Phosphatase 142 H 46-116 U/L Ammonia 99 H 11-32 umol/L B-Type Natriuretic Peptide 23.46 0-100 pg/mL Total Protein 7.6 5.7-8.2 g/dL Albumin 2.7 L 3.2-4.8 g/dL Plasma/Serum Blood Alcohol < 3.0 <10 mg/dL Urine Color Light-yellow Yellow Urine Clarity Hazy H Clear Urine pH 6.0 5.0-9.0 Urine Specific [place] 1.007 1.001-1.035 Urine Protein Negative Negative Urine Ketones Negative Negative Urine Blood Negative Negative /uL Urine Nitrite 1+ H Negative Urine Bilirubin Negative Negative Urine Urobilinogen Normal Negative mg/dL Urine Leukocyte Esterase 1+ Negative /uL Urine RBC None seen 0 - 4 /hpf Urine Microscopic WBC 6 H 0-5 /HPF Urine Squamous Epithelial Cells Few <5 /hpf Urine Bacteria Mod H None Seen /hpf Urine Glucose Normal Normal mg/dL Urine Opiates Screen Neg NEGATIVE Urine Fentanyl Screen Neg NEGATIVE Urine Barbiturates Screen Neg NEGATIVE Urine Phencyclidine Screen Neg NEGATIVE Urine Amphetamines Screen Neg NEGATIVE Urine Benzodiazepines Screen Neg NEGATIVE Urine Cocaine Screen Neg NEGATIVE Urine Cannabinoids Screen Neg NEGATIVE POC Glucose 102 70-106 mg/dl EXAM: CT HEAD WITHOUT CONTRAST HISTORY: aloc COMPARISON: CT HEAD WITHOUT CONTRAST on DOS: 10/04/23 TECHNIQUE: Axial images of the head were obtained and reformatted in coronal and sagittal planes. All CT scans at this medical facility are performed using dose modulation techniques as appropriate to a performed exam including the following: Automated exposure control was utilized; adjustment of the MA and/or KV according to patient size; and use of iterative reconstruction technique. CT Dose: CTDI volume is 65.18 mGy. Dose-length product is 1153.87 mGy*cm FINDINGS: There is a small hypodense area in the left basal ganglia. An acute to subacute infarct is not excluded. There is no evidence of acute intracranial hemorrhage, mass, mass effect midline shift. There is no hydrocephalus or extra-axial fluid collection. The visualized paranasal sinuses and mastoid air cells are clear. The calvarium is intact. IMPRESSION: 1. Small hypodense area in the left basal ganglia. An acute to subacute infarct is not excluded. Further evaluation with MRI brain with diffusion-weighted imaging is recommended. HS:Y CATION: aloc TECHNIQUE: Frontal view of the chest. COMPARISON: XY CHEST PORTABLE on DOS: 10/04/23, XY CHEST PORTABLE on DOS: 09/08/23 FINDINGS: Finding: The heart and mediastinal contours are grossly unremarkable. There is no evidence of pleural disease. The lungs are clear. The bony structures of the chest are intact without fracture. The study is unchanged from prior radiograph IMPRESSION: 1. No evidence of acute disease. X-Ray, Labs, Meds, VS Comment 59 y.o female with PMHx of DM, HTN, liver cirrhosis, and seizures, presents to the ED via EMS for an evaluation of confusion. VS unremarkable Exam remarkable for confusion, patient is oriented x2, no other gross focal neurologic deficit Rhythm strip independently interpreted by me: Sinus rhythm, rate 82, no ectopy. CT head IMPRESSION: 1. Small hypodense area in the left basal ganglia. An acute to subacute infarct is not excluded. Further evaluation with MRI brain with diffusion-weighted imaging is recommended. CXR neg CBC remarkable for WBC 3.7, platelets 67, metabolic panel remarkable for potassium 3.3, ALT 60, total bilirubin 4, alkaline phos 142, troponins and BNP negative, ammonia level 99, urine abnormal consistent with UTI Patient treated with the following in the ED: Lactulose 30 mL p.o., effervescent potassium 50 mEq p.o., Rocephin 1 g IV On re-evaluation, there has been no new neurologic change. Patient is alert. Plan is to admit the patient for ongoing treatment of hepatic encephalopathy, possible brain MRI and Neurology evaluation, and IV antibiotics for her UTI. Discussed with Dr. Mccabe, who will admit the patient. Time of 1ST Reevaluation: 11:26 Reevaluation 1ST: Unchanged Patient Education/Counseling: Other (patient is confused ) Family Education/Counseling: Diagnosis, Treatment, Prognosis Departure 1 Departure Time of Disposition: 14:12 Impression: Primary Impression: Hepatic encephalopathy Additional Impressions: Hypokalemia UTI (urinary tract infection) Qualified Codes: N39.0 - Urinary tract infection, site not specified Disposition: ADMITTED INPATIENT Admit to: Tele Condition: Guarded Critical Care Note Critical Care Time?: Yes (35 min-critical care time only) Critical care comment: Critical care time including multiple bedside re-evaluations, review of lab and imaging studies, and discussion of the case with the admitting provider. Patient is high risk for neurologic and/or metabolic decompensation. Stability Stability form required: No Heart Score Heart Score: Heart Score Response (Comments) Value History N/A 0 EKG N/A 0 Age N/A 0 Risk Factors N/A 0 Troponin N/A 0 Total 0 I personally scribed for CARLO BROOKS MD ([facility]) on 09/24/24 at 11:32. Electronically submitted by Stormy Radford ([facility]). I personally scribed for CARLO BROOKS MD ([facility]) on 09/24/24 at 13:28. Electronically submitted by Stormy Radford ([facility]). CARLO BROOKS MD September 24, 2024 11:32
[2024-09-24 11:55] VITALS: PULSE 91; RESP 18; O2SAT 100
[2024-09-24] MEDS: LACTULOSE 20Gm/30ML SOLN PO ONE (11:59)
[2024-09-24 12:19] LABS: Basophils # (auto) 0 10 ^3/uL (0-0.2); Eosinophils # (auto) 0.3 10 ^3/uL (0-0.8); Hematocrit 34.3 % (36.0-46.0); Hemoglobin 11.4 g/dL (12.2-16.2); Lymphocytes # (auto) 0.6 10 ^3/uL (0.4-5.4); Lymphocytes % (auto) 17.1 % (10.0-50.0); Mean Corpuscular Hgb Conc. 33.2 g/dL (32.0-36.0); Mean Corpuscular Volume 96.5 fL (80.0-100.0); Monocytes # (auto) 0.4 10 ^3/uL (0-1.3); Monocytes % (auto) 10.7 % (0.0-12.0); Neutrophils # (auto) 2.4 10 ^3/uL (1.6-8.6); Neutrophils % (auto) 64.2 % (37.0-80.0); Nucleated Red Blood Cells % 0.2 %; Platelet Count (auto) 67 10^3/uL (140-450); Red Blood Cells 3.56 10^6/uL (4.0-5.20); Red Cell Distribution Width 17.4 % (11.8-14.3); White Blood Cell 3.7 10^3/uL (4.4-10.8)
[2024-09-24 12:40] LABS: Alanine Aminotransferase 31 U/L (7-40); Anion Gap 7 (5-15); Carbon Dioxide 30 mmol/L (20-31); Chloride 104 mmol/L (98-107); Sodium 141 mmol/L (136-145); Total Protein 7.6 g/dL (5.7-8.2)
[2024-09-24 12:41] LABS: Albumin 2.7 g/dL (3.2-4.8); Alkaline Phosphatase 142 U/L (46-116); Aspartate Aminotransferase 60 U/L (13-40); Blood Alcohol < 3.0 mg/dL (<10); Blood Urea Nitrogen 9 mg/dL (9-23); Calcium 8.5 mg/dL (8.7-10.4); Glucose 125 mg/dL (74-106); Potassium 3.3 mmol/L (3.5-5.1)
--- NOTE | 2024-09-24 12:48 | DVH ---
INDICATION: aloc TECHNIQUE: Frontal view of the chest. COMPARISON: XY CHEST PORTABLE on DOS: 10/04/23, XY CHEST PORTABLE on DOS: 09/08/23 FINDINGS: Finding: The heart and mediastinal contours are grossly unremarkable. There is no evidence of pleura l disease. The lungs are clear. The bony structures of the chest are intact without fracture. The study is unchanged from prior radiograph IMPRESSION: 1. No evidence of acute disease.
--- NOTE | 2024-09-24 12:54 | DVH ---
EXAM: CT HEAD WITHOUT CONTRAST HISTORY: aloc COMPARISON: CT HEAD WITHOUT CONTRAST on DOS: 10/04/23 TECHNIQUE: Axial images of the head were obtained and reformatted in coronal and sagittal planes. All CT scans at this medical facility are performed using dose modulation techniques as appropriate t o a performed exam including the following: Automated exposure control was utilized; adjustment of th e MA and/or KV according to patient size; and use of iterative reconstruction technique. CT Dose: CTDI volume is 65.18 mGy. Dose-length product is 1153.87 mGy*cm FINDINGS: There is a small hypodense area in the left basal ganglia. An acute to subacute infarct is not exclud ed. There is no evidence of acute intracranial hemorrhage, mass, mass effect midline shift. There is no h ydrocephalus or extra-axial fluid collection. The visualized paranasal sinuses and mastoid air cells are clear. The calvarium is intact. IMPRESSION: 1. Small hypodense area in the left basal ganglia. An acute to subacute infarct is not excluded. Fur ther evaluation with MRI brain with diffusion-weighted imaging is recommended. HS:Y
[2024-09-24 13:07] LABS: Urine Bacteria MOD /hpf (None Seen); Urine Blood Negative /uL (Negative); Urine Color Light-Yellow (Yellow); Urine Protein, UAD Negative (Negative); Urine Specific Gravity 1.007 (1.001-1.035); Urine Squamous Epithelial Cell FEW /hpf (<5); Urine Urobilinogen Normal (Negative); Urine WBC 6 /HPF (0-5)
[2024-09-24 13:10] LABS: Opiate Scree,Urine Neg (NEGATIVE)
[2024-09-24 13:13] LABS: Amphetamine Screen, Urine Neg (NEGATIVE); Barbiturate Scree,Urine Neg (NEGATIVE); Benzodiazephine Screen, Urine Neg (NEGATIVE); Cannabinoid Screen, Urine Neg (NEGATIVE); Cocaine Screen, Urine Neg (NEGATIVE); Phencyclidine Screen, Urine Neg (NEGATIVE)
[2024-09-24 13:19] LABS: Urine Clarity Hazy (Clear)
--- NOTE | 2024-09-24 14:59 | DVHHP2 ---
Review of Systems Allergies: Coded Allergies: Cephalexin (Unverified Allergy, Unknown, 06/17/17) Medications Current Medications Medications Dose Ordered Sig/Elizabeth Route Start Time Stop Time Status Last Admin Dose Admin Rifaximin 550 mg BID PO 09/24/24 22:00 UNV Lactulose 30 ml Q6HR PO 09/24/24 18:00 UNV Ondansetron HCl 4 mg Q4HPRN PRN IV 09/24/24 15:00 UNV Acetaminophen 650 mg Q6HP PRN PO 09/24/24 15:00 UNV Potassium Chloride 10 meq BID PO 09/24/24 22:00 UNV Pantoprazole Sodium 40 mg BID PO 09/24/24 22:00 UNV Patient Own Medication 1 cap DAILY PO 09/25/24 10:00 UNV Exam Vital Signs Vital Signs Date Time Temp Pulse Resp B/P (MAP) Pulse Ox O2 Delivery O2 Flow Rate FiO2 09/24/24 11:55 91 18 100 Room Air* 0 21 09/24/24 11:55 97.8 108/66 (80) 97.8 Labs/Xrays Labs Test 09/24/24 12:52 09/24/24 12:00 09/24/24 11:50 09/24/24 11:24 Range/Units Troponin I High Sensitivity < 3 L </=34 ng/L White Blood Count 3.7 L 4.4-10.8 10^3/uL Red Blood Count 3.56 L 4.0-5.20 10^6/uL Hemoglobin 11.4 L 12.2-16.2 g/dL Hematocrit 34.3 L 36.0-46.0 % Mean Corpuscular Volume 96.5 80.0-100.0 fL Mean Corpuscular Hemoglobin 32.0 28.0-32.0 pg Mean Corpuscular Hemoglobin Concent 33.2 32.0-36.0 g/dL Red Cell Distribution Width 17.4 H 11.8-14.3 % Platelet Count 67 L 140-450 10^3/uL Mean Platelet Volume 8.1 6.9-10.8 fL Neutrophils (%) (Auto) 64.2 37.0-80.0 % Lymphocytes (%) (Auto) 17.1 10.0-50.0 % Monocytes (%) (Auto) 10.7 0.0-12.0 % Eosinophils (%) (Auto) 7.0 0.0-7.0 % Basophils (%) (Auto) 1.0 0.0-2.0 % Neutrophils # (Auto) 2.4 1.6-8.6 10 ^3/uL Lymphocytes # (Auto) 0.6 0.4-5.4 10 ^3/uL Monocytes # (Auto) 0.4 0-1.3 10 ^3/uL Eosinophils # (Auto) 0.3 0-0.8 10 ^3/uL Basophils # (Auto) 0 0-0.2 10 ^3/uL Nucleated Red Blood Cells 0.2 % Sodium Level 141 136-145 mmol/L Potassium Level 3.3 L 3.5-5.1 mmol/L Chloride Level 104 98-107 mmol/L Carbon Dioxide Level 30 20-31 mmol/L Anion Gap 7 5-15 Blood Urea Nitrogen 9 9-23 mg/dL Creatinine 0.90 0.550-1.02 mg/dL Glomerular Filtration Rate Calc 73 >90 mL/min BUN/Creatinine Ratio 10.0 10.0-20.0 Serum Glucose 125 H 74-106 mg/dL Calcium Level 8.5 L 8.7-10.4 mg/dL Total Bilirubin 4.0 H 0.2-1.0 mg/dL Aspartate Amino Transferase (AST) 60 H 13-40 U/L Alanine Aminotransferase (ALT) 31 7-40 U/L Alkaline Phosphatase 142 H 46-116 U/L Ammonia 99 H 11-32 umol/L B-Type Natriuretic Peptide 23.46 0-100 pg/mL Total Protein 7.6 5.7-8.2 g/dL Albumin 2.7 L 3.2-4.8 g/dL Plasma/Serum Blood Alcohol < 3.0 <10 mg/dL Urine Color Light-yellow Yellow Urine Clarity Hazy H Clear Urine pH 6.0 5.0-9.0 Urine Specific [place] 1.007 1.001-1.035 Urine Protein Negative Negative Urine Ketones Negative Negative Urine Blood Negative Negative /uL Urine Nitrite 1+ H Negative Urine Bilirubin Negative Negative Urine Urobilinogen Normal Negative mg/dL Urine Leukocyte Esterase 1+ Negative /uL Urine RBC None seen 0 - 4 /hpf Urine Microscopic WBC 6 H 0-5 /HPF Urine Squamous Epithelial Cells Few <5 /hpf Urine Bacteria Mod H None Seen /hpf Urine Glucose Normal Normal mg/dL Urine Opiates Screen Neg NEGATIVE Urine Fentanyl Screen Neg NEGATIVE Urine Barbiturates Screen Neg NEGATIVE Urine Phencyclidine Screen Neg NEGATIVE Urine Amphetamines Screen Neg NEGATIVE Urine Benzodiazepines Screen Neg NEGATIVE Urine Cocaine Screen Neg NEGATIVE Urine Cannabinoids Screen Neg NEGATIVE POC Glucose 102 70-106 mg/dl Assessment/Plan My Orders Orders - SHAHEEN ZHENG MD Procedure Category Date Status Time Admit ADMIT 09/24/24 Transmitted 14:54 Cardiac DIET 09/24/24 Transmitted Diet-2gna,Lofat,Lochol Dinner Pt Request For Service PT 09/24/24 Logged 14:54 Ammonia LAB 09/25/24 Verified 04:00 Rifaximin (Xifaxan) PHA 09/24/24 Logged 22:00 Lactulose Oral PHA 09/24/24 Logged 18:00 Ondansetron Hcl PHA 09/24/24 Logged (Zofran) 15:00 Acetaminophen Tablet PHA 09/24/24 Logged (Tylenol Tablet) 15:00 Potassium Er Tablet PHA 09/24/24 Logged (Klor-Con Tablet) 22:00 Pantoprazole Tablet PHA 09/24/24 Logged (Protonix Tablet) 22:00 (Nf) Fluoxetine Hcl PHA 09/25/24 Logged 10:00 SHAHEEN ZHENG MD September 24, 2024 14:59
[2024-09-24] MEDS ORDERED: ONDANSETRON HCL 4 MG/2 ML VIAL IV PRN (15:00)
[2024-09-24] MEDS ORDERED: ACETAMINOPHEN 325 MG TAB PO PRN (15:00)
[2024-09-24] MEDS: POTASSIUM EFFERVESENT TAB 25 MEQ PO ONE (15:55)
[2024-09-24] MEDS: LACTULOSE 20Gm/30ML SOLN PO SCH (18:00)
[2024-09-24] MEDS: cefTRIAXone 1GM/50ML D5W 50 ML IV ONE (18:37)
[2024-09-24 20:09] VITALS: PULSE 88; RESP 16; O2SAT 100
[2024-09-24 22:00] VITALS: TEMP 98.5
[2024-09-24] MEDS: PROPRANOLOL HCL 20 MG TAB PO SCH (22:07)
[2024-09-24] MEDS: PANTOPRAZOLE 40 MG TAB PO SCH (22:10)
[2024-09-24] MEDS: POTASSIUM CHL 10 Meq TABLET PO SCH (22:10)
[2024-09-24] MEDS: rifAXIMin 550 MG TAB PO SCH (22:11)
--- NOTE | 2024-09-25 03:16 | DVHHP2 ---
FRIEDA BRAUN [employer] SALES MANAGER 09/25/24 0316: History of Present Illness Reason for Visit: Altered mental status History of Present Illness 59-year-old female with past medical history of liver cirrhosis presents with complaints of altered mental status x4 days. Patient was sent into the emergency department by her because she was exhibiting same symptoms as previous admission 3 weeks ago when she was diagnosed with hyperammonemia. Patient was noted to be dropping things, confused, having difficulty walking. During the emergency department evaluation ammonia levels found to be elevated at 99. At the time of this evaluation patient is alert to self place and situation. States she is compliant with medications. She believes concentration and lactulose is not as strong as the 1 she received in the hospital. This time there are no complaints of fevers, chills, dizziness, shortness of breath, chest pain, abdominal pain, nausea, vomiting Cardiovascular: HTN Endocrine: Diabetes Smoke: No ALCOHOL: none Drugs: None Lives: with Family Review of Systems Constitutional: No: Fever, Chills, Sweats, Weakness, Malaise, Other Eyes: No: Pain, Vision change, Conjunctivae inflammation, Eyelid inflammation, Other, Redness ENT: No: Ear pain, Ear discharge, Nose pain, Nose discharge, Nose congestion, Mouth pain, Mouth swelling, Throat pain, Throat swelling, Other Respiratory: No: Cough, Dry, Shortness of breath, SOB with excertion, Wheezing, Hemoptysis, Pleuritic Pain, Sputum, Wheezing, Other Cardiovascular: No: Chest Pain, Palpitations, Orthopnea, Paroxysmal Noc. Dyspnea, Edema, Lt Headedness, Other Gastrointestinal: No: Nausea, Vomiting, Abdominal Pain, Diarrhea, Constipation, Melena, Hematochezia, Other Genitourinary: No Dysuria, No Frequency, No Incontinence, No Hematuria, No Retention, No Other Musculoskeletal: No: other, neck pain, shoulder pain, arm pain, back pain, hand pain, leg pain, foot pain Skin: No: Rash, Lesions, Jaundice, Bruising, Other Neurological: Weakness, Incoordination, Confusion; No: Numbness, Change in speech, Seizures, Other Allergies: Coded Allergies: Cephalexin (Unverified Allergy, Unknown, 06/17/17) Medications Current Medications Medications Dose Ordered Sig/Elizabeth Route Start Time Stop Time Status Last Admin Dose Admin Rifaximin 550 mg BID PO 09/24/24 22:00 5/5/25 22:11 550 MG Lactulose 30 ml Q6HR PO 09/24/24 18:00 09/25/24 00:22 30 ML Ondansetron HCl 4 mg Q4HPRN PRN IV 09/24/24 15:00 Acetaminophen 650 mg Q6HP PRN PO 09/24/24 15:00 Potassium Chloride 10 meq BID PO 09/24/24 22:00 09/24/24 22:10 10 MEQ Pantoprazole Sodium 40 mg BID PO 09/24/24 22:00 09/24/24 22:10 40 MG Fluoxetine HCl 40 mg DAILY PO 09/25/24 10:00 Propranolol HCl 10 mg TID PO 09/24/24 22:00 09/24/24 22:07 10 MG Ceftriaxone Sodium 50 ml @ 100 mls/hr DAILY@09 IV 09/25/24 09:00 Exam Vital Signs Vital Signs Date Time Temp Pulse Resp B/P (MAP) Pulse Ox O2 Delivery O2 Flow Rate FiO2 09/25/24 02:54 52 16 126/77 (93) 94 09/24/24 22:00 98.5 98.5 09/24/24 20:09 Room Air* 0 21 General Appearance: Alert, Oriented X3, Cooperative, No acute distress HEENT: Atraumatic, PERRLA, EOMI Respiratory: Clear to auscultation, Normal air movement Cardiovascular: Regular rate, Normal S1, Normal S2 Abdominal: Normal bowel sounds, Soft, No tenderness Extremities: No clubbing, No cyanosis Skin: No rashes, No breakdown Neuro: Normal speech Psych/Mental Status: Mental status NL, Mood NL Labs/Xrays Labs Test 09/24/24 12:52 09/24/24 12:00 09/24/24 11:50 09/24/24 11:24 Range/Units Troponin I High Sensitivity < 3 L </=34 ng/L White Blood Count 3.7 L 4.4-10.8 10^3/uL Red Blood Count 3.56 L 4.0-5.20 10^6/uL Hemoglobin 11.4 L 12.2-16.2 g/dL Hematocrit 34.3 L 36.0-46.0 % Mean Corpuscular Volume 96.5 80.0-100.0 fL Mean Corpuscular Hemoglobin 32.0 28.0-32.0 pg Mean Corpuscular Hemoglobin Concent 33.2 32.0-36.0 g/dL Red Cell Distribution Width 17.4 H 11.8-14.3 % Platelet Count 67 L 140-450 10^3/uL Mean Platelet Volume 8.1 6.9-10.8 fL Neutrophils (%) (Auto) 64.2 37.0-80.0 % Lymphocytes (%) (Auto) 17.1 10.0-50.0 % Monocytes (%) (Auto) 10.7 0.0-12.0 % Eosinophils (%) (Auto) 7.0 0.0-7.0 % Basophils (%) (Auto) 1.0 0.0-2.0 % Neutrophils # (Auto) 2.4 1.6-8.6 10 ^3/uL Lymphocytes # (Auto) 0.6 0.4-5.4 10 ^3/uL Monocytes # (Auto) 0.4 0-1.3 10 ^3/uL Eosinophils # (Auto) 0.3 0-0.8 10 ^3/uL Basophils # (Auto) 0 0-0.2 10 ^3/uL Nucleated Red Blood Cells 0.2 % Sodium Level 141 136-145 mmol/L Potassium Level 3.3 L 3.5-5.1 mmol/L Chloride Level 104 98-107 mmol/L Carbon Dioxide Level 30 20-31 mmol/L Anion Gap 7 5-15 Blood Urea Nitrogen 9 9-23 mg/dL Creatinine 0.90 0.550-1.02 mg/dL Glomerular Filtration Rate Calc 73 >90 mL/min BUN/Creatinine Ratio 10.0 10.0-20.0 Serum Glucose 125 H 74-106 mg/dL Calcium Level 8.5 L 8.7-10.4 mg/dL Total Bilirubin 4.0 H 0.2-1.0 mg/dL Aspartate Amino Transferase (AST) 60 H 13-40 U/L Alanine Aminotransferase (ALT) 31 7-40 U/L Alkaline Phosphatase 142 H 46-116 U/L Ammonia 99 H 11-32 umol/L B-Type Natriuretic Peptide 23.46 0-100 pg/mL Total Protein 7.6 5.7-8.2 g/dL Albumin 2.7 L 3.2-4.8 g/dL Plasma/Serum Blood Alcohol < 3.0 <10 mg/dL Urine Color Light-yellow Yellow Urine Clarity Hazy H Clear Urine pH 6.0 5.0-9.0 Urine Specific [place] 1.007 1.001-1.035 Urine Protein Negative Negative Urine Ketones Negative Negative Urine Blood Negative Negative /uL Urine Nitrite 1+ H Negative Urine Bilirubin Negative Negative Urine Urobilinogen Normal Negative mg/dL Urine Leukocyte Esterase 1+ Negative /uL Urine RBC None seen 0 - 4 /hpf Urine Microscopic WBC 6 H 0-5 /HPF Urine Squamous Epithelial Cells Few <5 /hpf Urine Bacteria Mod H None Seen /hpf Urine Glucose Normal Normal mg/dL Urine Opiates Screen Neg NEGATIVE Urine Fentanyl Screen Neg NEGATIVE Urine Barbiturates Screen Neg NEGATIVE Urine Phencyclidine Screen Neg NEGATIVE Urine Amphetamines Screen Neg NEGATIVE Urine Benzodiazepines Screen Neg NEGATIVE Urine Cocaine Screen Neg NEGATIVE Urine Cannabinoids Screen Neg NEGATIVE POC Glucose 102 70-106 mg/dl Assessment/Plan Assessment/Plan Acute hepatic encephalopathy Hyperammonemia Hypokalemia UTI Hx liver cirrhosis Plan Admit tuckpointer cleaner caulker BMP, ammonia level. Correct electrolytes as needed. Lactulose every six hours Continue home medication Fall precautions GI ppx protonix / GI ppx SCD Plan discussed with: Patient Date of Service: September 25, 2024 Billing Provider: SHAHEEN ZHENG MD Common Visit Codes: NOT BILLABLE SHAHEEN ZHENG MD 09/25/24 1221: Review of Systems Allergies: Coded Allergies: Cephalexin (Unverified Allergy, Unknown, 06/17/17) Assessment/Plan Assessment/Plan Patient's chart is reviewed and discussed with the nurse practitioner. I agree with the nurse practitioner's evaluation, documentation, assessment and care plan as outlined. Patient is seen and evaluated by me today. Plan discussed with: Patient FRIEDA BRAUN [employer] SALES MANAGER September 25, 2024 03:16 SHAHEEN ZHENG MD September 25, 2024 12:21
[2024-09-25 08:20] VITALS: PULSE 109; RESP 21; O2SAT 99
[2024-09-25] MEDS: cefTRIAXone 1GM/50ML D5W 50 ML IV SCH (09:19)
[2024-09-25] MEDS: FLUoxetine HCL 20 MG CAP PO SCH (10:09)
[2024-09-25 12:00] VITALS: BP 136/51; PULSE 98; RESP 18; O2SAT 97
[2024-09-25] MEDS ORDERED: RIFA550T PO (12:19)
[2024-09-25] MEDS ORDERED: LACT10SO3 PO (12:19)
--- NOTE | 2024-09-25 12:22 | DVHDS2 ---
Discharge Summary Date of Admission September 24, 2024 at 14:54 Date of Discharge: September 25, 2024 Labs/Diagnostic Data: Laboratory Results Test 09/25/24 05:45 09/24/24 12:52 09/24/24 12:00 09/24/24 11:50 Ammonia 52 umol/L (11-32) Troponin I High Sensitivity < 3 ng/L (</=34) White Blood Count 3.7 10^3/uL (4.4-10.8) Red Blood Count 3.56 10^6/uL (4.0-5.20) Hemoglobin 11.4 g/dL (12.2-16.2) Hematocrit 34.3 % (36.0-46.0) Mean Corpuscular Volume 96.5 fL (80.0-100.0) Mean Corpuscular Hemoglobin 32.0 pg (28.0-32.0) Mean Corpuscular Hemoglobin Concent 33.2 g/dL (32.0-36.0) Red Cell Distribution Width 17.4 % (11.8-14.3) Platelet Count 67 10^3/uL (140-450) Mean Platelet Volume 8.1 fL (6.9-10.8) Neutrophils (%) (Auto) 64.2 % (37.0-80.0) Lymphocytes (%) (Auto) 17.1 % (10.0-50.0) Monocytes (%) (Auto) 10.7 % (0.0-12.0) Eosinophils (%) (Auto) 7.0 % (0.0-7.0) Basophils (%) (Auto) 1.0 % (0.0-2.0) Neutrophils # (Auto) 2.4 10 ^3/uL (1.6-8.6) Lymphocytes # (Auto) 0.6 10 ^3/uL (0.4-5.4) Monocytes # (Auto) 0.4 10 ^3/uL (0-1.3) Eosinophils # (Auto) 0.3 10 ^3/uL (0-0.8) Basophils # (Auto) 0 10 ^3/uL (0-0.2) Nucleated Red Blood Cells 0.2 % Sodium Level 141 mmol/L (136-145) Potassium Level 3.3 mmol/L (3.5-5.1) Chloride Level 104 mmol/L (98-107) Carbon Dioxide Level 30 mmol/L (20-31) Anion Gap 7 (5-15) Blood Urea Nitrogen 9 mg/dL (9-23) Creatinine 0.90 mg/dL (0.550-1.02) Glomerular Filtration Rate Calc 73 mL/min (>90) BUN/Creatinine Ratio 10.0 (10.0-20.0) Serum Glucose 125 mg/dL (74-106) Calcium Level 8.5 mg/dL (8.7-10.4) Total Bilirubin 4.0 mg/dL (0.2-1.0) Aspartate Amino Transferase (AST) 60 U/L (13-40) Alanine Aminotransferase (ALT) 31 U/L (7-40) Alkaline Phosphatase 142 U/L (46-116) B-Type Natriuretic Peptide 23.46 pg/mL (0-100) Total Protein 7.6 g/dL (5.7-8.2) Albumin 2.7 g/dL (3.2-4.8) Plasma/Serum Blood Alcohol < 3.0 mg/dL (<10) Urine Color Light-yellow (Yellow) Urine Clarity Hazy (Clear) Urine pH 6.0 (5.0-9.0) Urine Specific [place] 1.007 (1.001-1.035) Urine Protein Negative (Negative) Urine Ketones Negative (Negative) Urine Blood Negative /uL (Negative) Urine Nitrite 1+ (Negative) Urine Bilirubin Negative (Negative) Urine Urobilinogen Normal mg/dL (Negative) Urine Leukocyte Esterase 1+ /uL (Negative) Urine RBC None seen /hpf (0 - 4) Urine Microscopic WBC 6 /HPF (0-5) Urine Squamous Epithelial Cells Few /hpf (<5) Urine Bacteria Mod /hpf (None Seen) Urine Glucose Normal mg/dL (Normal) Urine Opiates Screen Neg (NEGATIVE) Urine Fentanyl Screen Neg (NEGATIVE) Urine Barbiturates Screen Neg (NEGATIVE) Urine Phencyclidine Screen Neg (NEGATIVE) Urine Amphetamines Screen Neg (NEGATIVE) Urine Benzodiazepines Screen Neg (NEGATIVE) Urine Cocaine Screen Neg (NEGATIVE) Urine Cannabinoids Screen Neg (NEGATIVE) Test 09/24/24 11:24 POC Glucose 102 mg/dl (70-106) Other Laboratory Tests 09/24/24 12:00 Brief Hx & Hospital Course: 59-year-old female with past medical history of liver cirrhosis presents with complaints of altered mental status x4 days. Patient was sent into the emergency department by her because she was exhibiting same symptoms as previous admission 3 weeks ago when she was diagnosed with hyperammonemia. Patient was noted to be dropping things, confused, having difficulty walking. During the emergency department evaluation ammonia levels found to be elevated at 99. At the time of this evaluation patient is alert to self place and situation. States she is compliant with medications. She believes concentration and lactulose is not as strong as the 1 she received in the hospital. This time there are no complaints of fevers, chills, dizziness, shortness of breath, chest pain, abdominal pain, nausea, vomiting She is admitted and once again counseled regarding compliance with her lactulose. Apparently she is not having good bowel movements with the current dose she is taking at home. Therefore I have advised to increase her lactulose at home and continue rifaximin. I have also advised her to go to urgent care with the [facility] once a week to check her ammonia level and adjust her lactulose to prevent further hospitalizations. Otherwise while in the hospital patient received oral Lasix and rifaximin and her ammonia level has improved. Her mentation is back to normal baseline status. Therefore it is felt she could be safely discharged home. Patient has verbalized understanding over hospital diagnosis, adjustment of her lactulose dosage and verbalized understanding of her discharge instructions to follow up with the urgent care as mentioned. Condition at Discharge: Stable Final Diagnosis/Problems List Hepatic encephalopathy, noncompliance with the lactulose, liver cirrhosis Discharge Disposition: Home Discharge Instruct/Medications Diet: Consistent carbohydrate, Cardiac 2g Na,low cholest Activity: No Restrictions, As Tolerated Follow Up/Referral: [facility] urgent Care every Tuesday to check your ammonia levels. Call [phone] directions. With your primary care physician in three weeks. Medications: Take lactulose 45 mL (three cups) 4 times a day to make sure to have 2-3 loose bowel movements. Continue other antibiotic as prescribed for high ammonia levels. Changed Medications: Lactulose (Lactulose) 10 Gm/15 Ml Kallie 45 ML PO QID, #1200 ML 1 Refill (Changed from: 30 ML; Q6HR; Refills: ) Take 45 mL (3 cups of 15ml) 4 times a day to make sure your having 2-3 loose bowel movements daily Continued Medications: Atenolol (Atenolol) 100 Mg Tab 1 TAB PO DAILY for hypertension Fluoxetine Hcl (Fluoxetine Hcl) 40 Mg Cap 1 CAP PO DAILY Levofloxacin Hemihydrate (Levofloxacin) 500 Mg Tab 1 TAB PO DAILY for 3 Days, #3 TAB Omeprazole (Omeprazole Dr) 20 Mg Cap 20 MG PO DAILY, CAP Ondansetron HCl (Ondansetron) 4 Mg Tab 4 MG PO, TAB Oxycodone Hcl (Oxycodone Hcl) 5 Mg Tb 1 TAB PO Q6HPRN PRN for pain management Pantoprazole Sodium Sesquihydr (Pantoprazole Sodium) 40 Mg Tab 40 MG PO BID, #60 TAB Rifaximin (Xifaxan) 550 Mg Tab 550 MG PO BID for 7 Days, #14 TAB Rifaximin (Xifaxan) 550 Mg Tab 1 TAB PO BID, #60 TAB (This prescription has been renewed) Semaglutide (Ozempic) 4 Mg/3 Ml Inj 4 MG SC, INJ Discontinued Medications: Lactulose (Lactulose) 10 Gm/15 Ml Kallie 20 GM PO BID, #240 ML 1 Refill Lactulose (Lactulose) 10 Gm/15 Ml Kallie 10 GM PO BID for 30 Days, ML Discharge Statement: "Patient was advised to return to the ER or call 911 if any headaches, dizziness, shortness of breath, chest pain, abdominal pain, bleeding, fevers, or worsening of medical condition. Patient was counseled about treatment plan, medications, possible side effects, patient�verbalized understanding. All questions were answered to the best of my ability. This discharge took greater then 30 minutes in planning, reviewing documentation, counseling the patient, and discussing with other team members." ASSESSMENT ASSESSMENT Assessment Hepatic encephalopathy, noncompliance with the lactulose, liver cirrhosis SHAHEEN ZHENG MD September 25, 2024 12:22
[2024-09-25] MEDS ORDERED: POTASSIUM CHL 10 Meq TABLET PO SCH (14:00)
--- NOTE | 2024-09-26 13:57 | ECG ---
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
== END 2024-09-25 13:13 | disposition home or self-care (01) | DRG 442 ==
LOC: ER 11:15 → OVERFLOW 14:54
PROVIDERS: ADMIT Hospitalist; ATTEND Hospitalist
DX: K76.82 Hepatic encephalopathy (principal); E72.20 Disorder of urea cycle metabolism, unspecified; N39.0 Urinary tract infection, site not specified; E87.6 Hypokalemia; K74.60 Unspecified cirrhosis of liver; E11.9 Type 2 diabetes mellitus without complications; I10 Essential (primary) hypertension; Z91.199 Patient's noncompliance with other medical treatment and regimen due to unspecified reason
CPT/HCPCS: 36415; 70450; 71045; 80053; 80307; 80320; 81001; 82140; 82962; 83880; 84484; 85025; 93005; 96365; 99291; G0378

== ENCOUNTER 2024-11-10 01:54 | Inpatient (IN) | payer OTHER ==
[~2024-11-10] VITALS: Ht 152.4 cm; Wt 102.3 kg
--- NOTE | 2024-11-10 02:35 | ED.PDOC ---
History of Present Illness HPI Comments 59-year-old female came to ER for shortness a breath. Patient does have history of liver cirrhosis, hepatic encephalopathy, states for the past few days she has been having shortness of breath, associated with cough, throat pain and chest discomfort. Patient was advised by family members to go to the ER for breathing treatment. Patient is saturating 100% on room air upon arrival Chief Complaint: Shortness of Breath Time Seen by MD: 02:33 Primary Care Provider: SKYLAR Alex Notes: Nurses Notes Allergies: Coded Allergies: Cephalexin (Unverified Allergy, Unknown, 06/17/17) Home Meds Active Scripts Lactulose (Lactulose) 10 Gm/15 Ml Kallie, 45 ML PO QID, #1200 ML 1 Refill Take 45 mL (3 cups of 15ml) 4 times a day to make sure your having 2-3 loose bowel movements daily Prov:SHAHEEN ZHENG MD 09/25/24 Rifaximin (Xifaxan) 550 Mg Tab, 1 TAB PO BID, #60 TAB Prov:SHAHEEN ZHENG MD 09/25/24 Pantoprazole Sodium Sesquihydr (Pantoprazole Sodium) 40 Mg Tab, 40 MG PO BID, #60 TAB Prov:SHAHEEN ZHENG MD 08/25/24 Rifaximin (Xifaxan) 550 Mg Tab, 550 MG PO BID for 7 Days, #14 TAB Prov:DONN MCDANIEL RESIDENT 11/13/23 Lactulose (Lactulose) 10 Gm/15 Ml Kallie, 10 GM PO BID for 30 Days, ML Prov:DONN MCDANIEL RESIDENT 11/13/23 Levofloxacin Hemihydrate (LEVOFLOXACIN) 500 Mg Tab, 1 TAB PO DAILY for 3 Days, #3 TAB Prov:MEENA MCPHERSON MD 09/18/23 Lactulose (Lactulose) 10 Gm/15 Ml Kallie, 20 GM PO BID, #240 ML 1 Refill Prov:SHAHEEN ZHENG MD 09/12/23 Reported Medications Spironolactone (Spironolactone) 25 Mg Tab, 1 TAB PO DAILY 11/10/24 Furosemide (Furosemide) 40 Mg Tab, 1 TAB PO DAILY 11/10/24 Midodrine HCl (Midodrine Hydrochloride) 10 Mg Tab, 1 TAB PO TID 11/10/24 Ondansetron HCl (Ondansetron) 4 Mg Tab, 4 MG PO, TAB 09/17/24 Semaglutide (Ozempic) 4 Mg/3 Ml Inj, 4 MG SC, INJ 09/17/24 Omeprazole (Omeprazole Dr) 20 Mg Cap, 20 MG PO DAILY, CAP 09/09/23 Fluoxetine Hcl (Fluoxetine Hcl) 40 Mg Cap, 1 CAP PO DAILY 09/09/23 Atenolol (Atenolol) 100 Mg Tab, 1 TAB PO DAILY for hypertension 09/09/23 Oxycodone Hcl (OXYCODONE HCL) 5 Mg Tb, 1 TAB PO Q6HPRN PRN for pain management 09/09/23 Information Source: Patient Mode of Arrival: Ambulatory Severity: Moderate Timing: Days Duration: Intermittent Review of Systems REVIEW OF SYSTEMS: No fever, no chills, or fatigue HEENT: (+) sore throat, no earache, no congestion, no neck pain. Cardiac: (+) chest pain. No palpitations. Lungs: (+) shortness of breath, (+) cough. GI: No nausea, no vomiting, no diarrhea, no constipation, no abdominal pain : No dysuria, frequency, or urgency. No hematuria. Musculoskeletal: No joint pain , no joint swelling, no extremity edema. Skin: No rash, no itching. Neuro: No headache, no dizziness, no weakness Vital Signs Vital Signs Date Time Temp Pulse Resp B/P (MAP) Pulse Ox O2 Delivery O2 Flow Rate FiO2 11/10/24 02:59 20 94 Room Air* 0 21 11/10/24 02:20 98.5 88 128/79 (95) 98.5 Physical Exam General: Awake, alert and oriented. No acute distress. Skin: Skin in warm, dry and intact. Patient appears jaundiced Nailbeds pink with no cyanosis. HEENT: The head is normocephalic and atraumatic. Conjunctivae are clear without exudates or hemorrhage. Sclera icteric. EOM are intact. No signs of nystagmus. Eyelids are normal in appearance without swelling or lesions. Oral mucosa is pink and moist Neck: The neck is supple with normal range of motion. Cardiac: Heart rate and rhythm are normal. No murmurs, gallops, or rubs are auscultated. Respiratory: No signs of respiratory distress. Lung sounds are clear in all lobes bilaterally without rales, rhonchi, or wheezes. Abdominal: Abdomen is soft, non-tender Extremities: Bilateral pitting lower extremity edema Neurological: The patient is awake, alert and oriented to person, place, and time with normal slow speech. Speech is clear. There is no facial asymmetry. 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 Was a procedure done?: No Differential Dx Considerations may include: Anemia, electrolyte imbalance, liver cirrhosis, hepatic encephalopathy, pneumonia, shortness of breath, urinary tract infection, other X-Ray, Labs, Meds, VS Vital Signs Date Time Temp Pulse Resp B/P (MAP) Pulse Ox O2 Delivery O2 Flow Rate FiO2 11/10/24 02:59 20 94 Room Air* 0 21 11/10/24 02:20 98.5 88 20 128/79 (95) 100 98.5 Lab Test 11/10/24 03:02 Range/Units White Blood Count 2.9 L 4.4-10.8 10^3/uL Red Blood Count 2.99 L 4.0-5.20 10^6/uL Hemoglobin 10.0 L 12.2-16.2 g/dL Hematocrit 29.3 L 36.0-46.0 % Mean Corpuscular Volume 97.9 80.0-100.0 fL Mean Corpuscular Hemoglobin 33.3 H 28.0-32.0 pg Mean Corpuscular Hemoglobin Concent 34.0 32.0-36.0 g/dL Red Cell Distribution Width 16.9 H 11.8-14.3 % Platelet Count 59 L 140-450 10^3/uL Mean Platelet Volume 8.8 6.9-10.8 fL Neutrophils (%) (Auto) 64.8 37.0-80.0 % Lymphocytes (%) (Auto) 19.8 10.0-50.0 % Monocytes (%) (Auto) 7.5 0.0-12.0 % Eosinophils (%) (Auto) 7.4 H 0.0-7.0 % Basophils (%) (Auto) 0.5 0.0-2.0 % Neutrophils # (Auto) 1.8 1.6-8.6 10 ^3/uL Lymphocytes # (Auto) 0.6 0.4-5.4 10 ^3/uL Monocytes # (Auto) 0.2 0-1.3 10 ^3/uL Eosinophils # (Auto) 0.2 0-0.8 10 ^3/uL Basophils # (Auto) 0 0-0.2 10 ^3/uL Nucleated Red Blood Cells 0.6 % Prothrombin Time 17.8 H 9.3-11.8 sec Prothrombin Time INR 1.78 H 0.9-1.15 Sodium Level 139 136-145 mmol/L Potassium Level 3.0 L 3.5-5.1 mmol/L Chloride Level 100 98-107 mmol/L Carbon Dioxide Level 29 20-31 mmol/L Anion Gap 10 5-15 Blood Urea Nitrogen 11 9-23 mg/dL Creatinine 1.23 H 0.550-1.02 mg/dL Glomerular Filtration Rate Calc 50 >90 mL/min BUN/Creatinine Ratio 8.9 L 10.0-20.0 Serum Glucose 138 H 74-106 mg/dL Calcium Level 8.5 L 8.7-10.4 mg/dL Total Bilirubin 4.7 H 0.2-1.0 mg/dL Aspartate Amino Transferase (AST) 70 H <34 U/L Alanine Aminotransferase (ALT) 22 7-40 U/L Alkaline Phosphatase 120 H 46-116 U/L Ammonia 85 H 11-32 umol/L Troponin I High Sensitivity 6 </=34 ng/L Total Protein 7.3 5.7-8.2 g/dL Albumin 2.7 L 3.2-4.8 g/dL Current Medications Medications (Trade) Dose Ordered Sig/Elizabeth Route Start Time Stop Time Status Last Admin Albuterol (Ventolin Medneb) 5 mg ONCE ONCE NEB 11/10/24 02:30 11/10/24 02:31 DC 11/10/24 02:59 Potassium Chloride (Klor-Con Tablet) 40 meq ONCE ONCE PO 11/10/24 07:45 11/10/24 08:06 DC 11/10/24 09:20 CHEST RADIOGRAPH Indication: Shortness of breath, chest pain Technique: Single frontal view of the chest was obtained COMPARISON: XY CHEST PORTABLE on DOS: 09/24/24, XY CHEST PORTABLE on DOS: 10/04/23, XY CHEST PORTABLE on DOS: 09/08/23 FINDINGS: Lines and Tubes: None Lungs: Clear Pleura: No effusion. No pneumothorax. Cardiomediastinal contours: Unremarkable Bones: Unremarkable IMPRESSION: 1. No acute disease. Time of 1ST Reevaluation: 02:28 Reevaluation 1ST: Unchanged Patient Education/Counseling: Prognosis Family Education/Counseling: No Family Present SEPSIS Sepsis Screen Physician Orders Chest Xray 1 View (11/10/24 02:17) Lactulose Oral (11/10/24 10:00) Vital Signs Date Time Temp Pulse Resp B/P (MAP) Pulse Ox O2 Delivery O2 Flow Rate FiO2 11/10/24 02:59 20 94 Room Air* 0 21 11/10/24 02:20 98.5 88 20 128/79 (95) 100 98.5 Laboratory Tests Test 11/10/24 03:02 White Blood Count 2.9 10^3/uL (4.4-10.8) L Medications Medications Dose Ordered Sig/Elizabeth Route Start Time Stop Time Status Last Admin Dose Admin Potassium Chloride 40 meq ONCE ONCE PO 11/10/24 07:45 11/10/24 08:06 DC 11/10/24 09:20 Departure 1 Departure Time of Disposition: 04:10 Impression: Primary Impression: Hypokalemia Additional Impressions: Hepatic encephalopathy Hyperammonemia Anemia Leukopenia Disposition: ADMITTED INPATIENT Condition: Stable Comments Patient admitted to hospitalist service for further treatment, evaluation and monitoring. Critical Care Note Critical Care Time?: No Stability Stability form required: No Heart Score Heart Score: Heart Score Response (Comments) Value History N/A 0 EKG N/A 0 Age N/A 0 Risk Factors N/A 0 Troponin N/A 0 Total 0 I personally scribed for FIDE JULES MD ([email or web address]) on 11/10/24 at 02:35. Electronically submitted by Aidan Hester ([employer]). I personally scribed for FIDE JULES MD ([email or web address]) on 11/10/24 at 04:09. Electronically submitted by Aidan Hester ([employer]). FIDE JULES MD Nov 10, 2024 02:35
[2024-11-10] MEDS: ALBUTEROL SULF 2.5 MG/0.5ML(0.5%) NEB SOLN NEB ONE (02:59)
[2024-11-10 03:09] LABS: Basophils # (auto) 0 10 ^3/uL (0-0.2); Eosinophils # (auto) 0.2 10 ^3/uL (0-0.8); Lymphocytes # (auto) 0.6 10 ^3/uL (0.4-5.4); Monocytes # (auto) 0.2 10 ^3/uL (0-1.3); Neutrophils # (auto) 1.8 10 ^3/uL (1.6-8.6); Red Cell Distribution Width 16.9 % (11.8-14.3)
[2024-11-10 03:11] LABS: Basophils % (auto) 0.5 % (0.0-2.0); Eosinophils % (auto) 7.4 % (0.0-7.0); Hematocrit 29.3 % (36.0-46.0); Lymphocytes % (auto) 19.8 % (10.0-50.0); Mean Corpuscular Hemoglobin 33.3 pg (28.0-32.0); Mean Corpuscular Volume 97.9 fL (80.0-100.0); Monocytes % (auto) 7.5 % (0.0-12.0); Neutrophils % (auto) 64.8 % (37.0-80.0); Nucleated Red Blood Cells % 0.6 %; Red Blood Cells 2.99 10^6/uL (4.0-5.20); White Blood Cell 2.9 10^3/uL (4.4-10.8)
[2024-11-10 03:23] LABS: INR 1.78 (0.9-1.15); Prothrombin Time 17.8 sec (9.3-11.8)
[2024-11-10 03:27] LABS: Alanine Aminotransferase 22 U/L (7-40); Anion Gap 10 (5-15); BUN/Creatinine Ratio 8.9 (10.0-20.0); Blood Urea Nitrogen 11 mg/dL (9-23); Carbon Dioxide 29 mmol/L (20-31); Chloride 100 mmol/L (98-107); Sodium 139 mmol/L (136-145); Total Protein 7.3 g/dL (5.7-8.2)
[2024-11-10 03:37] LABS: Albumin 2.7 g/dL (3.2-4.8); Alkaline Phosphatase 120 U/L (46-116); Aspartate Aminotransferase 70 U/L (<34); Bilirubin, Total 4.7 mg/dL (0.2-1.0); Calcium 8.5 mg/dL (8.7-10.4); Glucose 138 mg/dL (74-106)
[2024-11-10 03:51] LABS: Platelet Count (auto) 59 10^3/uL (140-450)
--- NOTE | 2024-11-10 04:01 | DVH ---
CHEST RADIOGRAPH Indication: Shortness of breath, chest pain Technique: Single frontal view of the chest was obtained COMPARISON: XY CHEST PORTABLE on DOS: 09/24/24, XY CHEST PORTABLE on DOS: 10/04/23, XY CHEST PORTABLE on DOS: 09/08/23 FINDINGS: Lines and Tubes: None Lungs: Clear Pleura: No effusion. No pneumothorax. Cardiomediastinal contours: Unremarkable Bones: Unremarkable IMPRESSION: 1. No acute disease.
--- NOTE | 2024-11-10 06:36 | ECG ---
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
[2024-11-10] MEDS ORDERED: ONDANSETRON HCL 4 MG/2 ML VIAL IV PRN (08:15)
[2024-11-10] MEDS ORDERED: NITROGLYCERIN 0.4 MG SL TAB SL PRN (08:15)
[2024-11-10] MEDS ORDERED: MORPHINE SULFATE INJ 2 MG/ml SYRG IV PRN (08:15)
[2024-11-10] MEDS ORDERED: ALBUTEROL SULF 2.5 MG/0.5ML(0.5%) NEB SOLN NEB PRN (08:15)
[2024-11-10] MEDS ORDERED: IPRATROPIUM BROM 0.5 MG/2.5ML INH SOL NEB PRN (08:15)
[2024-11-10 08:48] VITALS: BP 119/46; PULSE 86; RESP 16; TEMP 98; O2SAT 96
[2024-11-10] MEDS: POTASSIUM CHL 20 Meq TABLET PO ONE (09:20)
[2024-11-10] MEDS ORDERED: FURO40TA4 PO (09:24)
[2024-11-10] MEDS ORDERED: SPIR25TA8 PO (09:24)
[2024-11-10] MEDS ORDERED: MIDO10TA10 PO (09:24)
[2024-11-10] MEDS ORDERED: DEXTROSE (50%) 50ML SYRG IV PRN (09:30)
--- NOTE | 2024-11-10 09:43 | DVHHP2 ---
History of Present Illness Reason for Visit: SOB History of Present Illness Crystal Lyn is a 59-year-old female with past medical history of hypertension, diabetes type 2, liver cirrhosis, bilateral hip replacement, right total knee replacement, and bilateral carpal tunnel surgery who presents to the ED with shortness of breath x3 days. Patient reports that she was sleeping in the time and woke up short of breath. Patient states that she lives at home with her family as well as walks with a front wheel walker or uses a wheelchair to get around. She states that she does not smoke drink or use any drugs. Patient denies chest pain, fever, chills, lightheadedness, weakness, dizziness, recent travels, recent sick contacts, recent ingestion of spoiled food, recent trauma or injury, abdominal pain, nausea, vomiting, or diarrhea. Cardiovascular: HTN Hepatobiliary: Cirrhosis Endocrine: Diabetes Past Surgical History: Other (Bilateral hip replacement and bilateral carpal tunnel surgery), Total knee replacement Family History: Cancer, Other (Mom with small-bowel cancer and dad with cirrhosis) Smoke: No ALCOHOL: none Drugs: None Lives: with Family Domestic Violence: Neg Review of Systems Respiratory: Shortness of breath Allergies: Coded Allergies: Cephalexin (Unverified Allergy, Unknown, 06/17/17) Medications Current Medications Medications Dose Ordered Sig/Elizabeth Route Start Time Stop Time Status Last Admin Dose Admin Lactulose 30 ml DAILY PO 11/10/24 10:00 Ondansetron HCl 4 mg Q4HP PRN IV 11/10/24 08:15 Nitroglycerin 0.4 mg Q5MINP PRN SL 11/10/24 08:15 Morphine Sulfate 2 mg Q30M PRN IV 11/10/24 08:15 Albuterol 2.5 mg Q4HPRN PRN NEB 11/10/24 08:15 Ipratropium [place] 0.5 mg Q4HPRN PRN NEB 11/10/24 08:15 Exam Vital Signs Vital Signs Date Time Temp Pulse Resp B/P (MAP) Pulse Ox O2 Delivery O2 Flow Rate FiO2 11/10/24 08:48 86 16 96 Room Air 11/10/24 08:48 98.0 119/46 (70) 98.0 11/10/24 02:59 0 21 General Appearance: Alert, Oriented X3, Cooperative, No acute distress HEENT: Atraumatic, PERRLA, EOMI, Mucous membr. moist/pink Respiratory: Normal air movement Cardiovascular: Regular rate, Normal S1, Normal S2 Abdominal: Normal bowel sounds, Soft Extremities: Normal pulses Skin: No significant lesion Neuro: Normal speech, Normal tone, Sensation intact Psych/Mental Status: Mental status NL, Mood NL Labs/Xrays Labs Test 11/10/24 08:27 11/10/24 03:02 Range/Units D-Dimer, Quantitative 12.05 H 0.0-0.49 mg/L FEU White Blood Count 2.9 L 4.4-10.8 10^3/uL Red Blood Count 2.99 L 4.0-5.20 10^6/uL Hemoglobin 10.0 L 12.2-16.2 g/dL Hematocrit 29.3 L 36.0-46.0 % Mean Corpuscular Volume 97.9 80.0-100.0 fL Mean Corpuscular Hemoglobin 33.3 H 28.0-32.0 pg Mean Corpuscular Hemoglobin Concent 34.0 32.0-36.0 g/dL Red Cell Distribution Width 16.9 H 11.8-14.3 % Platelet Count 59 L 140-450 10^3/uL Mean Platelet Volume 8.8 6.9-10.8 fL Neutrophils (%) (Auto) 64.8 37.0-80.0 % Lymphocytes (%) (Auto) 19.8 10.0-50.0 % Monocytes (%) (Auto) 7.5 0.0-12.0 % Eosinophils (%) (Auto) 7.4 H 0.0-7.0 % Basophils (%) (Auto) 0.5 0.0-2.0 % Neutrophils # (Auto) 1.8 1.6-8.6 10 ^3/uL Lymphocytes # (Auto) 0.6 0.4-5.4 10 ^3/uL Monocytes # (Auto) 0.2 0-1.3 10 ^3/uL Eosinophils # (Auto) 0.2 0-0.8 10 ^3/uL Basophils # (Auto) 0 0-0.2 10 ^3/uL Nucleated Red Blood Cells 0.6 % Prothrombin Time 17.8 H 9.3-11.8 sec Prothrombin Time INR 1.78 H 0.9-1.15 Sodium Level 139 136-145 mmol/L Potassium Level 3.0 L 3.5-5.1 mmol/L Chloride Level 100 98-107 mmol/L Carbon Dioxide Level 29 20-31 mmol/L Anion Gap 10 5-15 Blood Urea Nitrogen 11 9-23 mg/dL Creatinine 1.23 H 0.550-1.02 mg/dL Glomerular Filtration Rate Calc 50 >90 mL/min BUN/Creatinine Ratio 8.9 L 10.0-20.0 Serum Glucose 138 H 74-106 mg/dL Calcium Level 8.5 L 8.7-10.4 mg/dL Total Bilirubin 4.7 H 0.2-1.0 mg/dL Aspartate Amino Transferase (AST) 70 H <34 U/L Alanine Aminotransferase (ALT) 22 7-40 U/L Alkaline Phosphatase 120 H 46-116 U/L Ammonia 85 H 11-32 umol/L Troponin I High Sensitivity 6 </=34 ng/L Total Protein 7.3 5.7-8.2 g/dL Albumin 2.7 L 3.2-4.8 g/dL CHEST RADIOGRAPH Indication: Shortness of breath, chest pain Technique: Single frontal view of the chest was obtained COMPARISON: XY CHEST PORTABLE on DOS: 09/24/24, XY CHEST PORTABLE on DOS: 10/04/23, XY CHEST PORTABLE on DOS: 09/08/23 FINDINGS: Lines and Tubes: None Lungs: Clear Pleura: No effusion. No pneumothorax. Cardiomediastinal contours: Unremarkable Bones: Unremarkable IMPRESSION: 1. No acute disease. Assessment/Plan Assessment/Plan Assessment Shortness of breath rule out influenza Pancytopenia Hyperbilirubinemia [place] Hyperammonemia Hypokalemia Elevated D-dimer likely due to liver cirrhosis History of hypertension and a history of diabetes type 2 History of liver cirrhosis History of bilateral hip replacement History of right total knee replacement History of bilateral carpal tunnel surgery Plan Admit to tele Hemoglobin A1c ISS and Accu-Cheks Lactulose Antiemetics Pain management Replete lytes Duo nebs D-dimer COVID test Flu test PT/INR EKG Chest x-ray noted Troponin noted Ammonia levels Diet Home medications reconciled DVT prophylaxis-SCDs PUD prophylaxis-not indicated no history of GERD or GI bleed Discussed plan of care with patient and nurse GI consult for hyperbilirubinemia and hyperammonemia Meld score 21 points - estimated 3 month mortality 19.6% Plan discussed with: Patient My Orders Orders - RAZA LYONS Procedure Category Date Status Time Lactulose Oral PHA 11/10/24 In Process 10:00 Admit ADMIT 11/10/24 Transmitted 08:13 Allergies GINO 11/10/24 In Process 08:13 Code Status CODE 11/10/24 Transmitted 08:13 Ondansetron Hcl PHA 11/10/24 In Process (Zofran) 08:15 Complete Blood Count LAB 11/11/24 Verified 04:00 Comprehensive LAB 11/11/24 Verified Metabolic Panel 04:00 Cardiac DIET 11/10/24 Transmitted Diet-2gna,Lofat,Lochol Breakfast Sequential GINO 11/10/24 In Process Compression Device Nitroglycerin PHA 11/10/24 In Process Sublingual (Ntrostat 08:15 Morphine Sulfate PHA 11/10/24 In Process Injection 08:15 Stat Ekg For Chest [facility] 11/10/24 In Process Pain 08:13 Notify Md Of Changes [facility] 11/10/24 In Process From Base 08:13 Production Internship For [facility] 11/10/24 In Process 24 Hours 08:13 Emergency Dysrhythmia [facility] 11/10/24 In Process Protocol 08:13 Rhythm Strips Once [facility] 11/10/24 In Process Every Shift 08:13 Oxygen By Nasal RT 11/10/24 Transmitted Cannula 08:13 Albuterol Medneb PHA 11/10/24 In Process (Ventolin Medneb) 08:15 Ipratropium Medneb PHA 11/10/24 In Process (Atrovent Medneb) 08:15 * [facility] [employer] CONS 11/10/24 Transmitted 08:15 Date of Service: Nov 10, 2024 Billing Provider: RAZA LYONS Common Visit Codes: 34186-RAMPTNM INP/OBS CARE (HIGH) RAZA LYONS Nov 10, 2024 09:43
[2024-11-10] MEDS ORDERED: LACTULOSE 20Gm/30ML SOLN PO SCH (10:00)
[2024-11-10] MEDS ORDERED: InsuLIN REG 1unit/0.01ml Soln (100units/ml) SC SCH (11:30)
[2024-11-10] MEDS ORDERED: ACCU-CHEK COMFORT CURVE STRIP VI SCH (11:30)
[2024-11-10 12:05] LABS: COVID19 ANTIGEN SOFIA FIA NEGATIVE (NEGATIVE); Rapid Influenza A Negative (Negative); Rapid Influenza B Negative (Negative)
[2024-11-11] MEDS ORDERED: ATENOLOL 25 MG TAB PO SCH (10:00)
[2024-11-11] MEDS ORDERED: FLUoxetine HCL 20 MG CAP PO SCH (10:00)
== END 2024-11-10 17:18 | disposition left against medical advice (07) | DRG 152 ==
LOC: ER 01:54 → OVERFLOW 08:13
DX: J11.1 Influenza due to unidentified influenza virus with other respiratory manifestations (principal); I26.99 Other pulmonary embolism without acute cor pulmonale; D61.818 Other pancytopenia; E72.20 Disorder of urea cycle metabolism, unspecified; N17.9 Acute kidney failure, unspecified; Z20.822 Contact with and (suspected) exposure to COVID-19; E87.6 Hypokalemia; I10 Essential (primary) hypertension; G56.03 Carpal tunnel syndrome, bilateral upper limbs; E11.9 Type 2 diabetes mellitus without complications; K74.60 Unspecified cirrhosis of liver; Z96.643 Presence of artificial hip joint, bilateral; Z96.651 Presence of right artificial knee joint; K76.82 Hepatic encephalopathy; Z88.1 Allergy status to other antibiotic agents
CPT/HCPCS: 36415; 71045; 80053; 82140; 83036; 84484; 85025; 85379; 85610; 87426; 87804; 93005; 94640; G0378